=== PATIENT | male | born 1970 | race Caucasian/White ===

== ENCOUNTER 2017-01-19 08:16 | Emergency (ER) | payer MEDICAID, OTHER ==
[~2017-01-19] VITALS: Ht 170.2 cm; Wt 79.0 kg
[~2017-01-19 08:16] MED LIST: BUTA1CAP PO; METF500 PO
[2017-01-19 08:20] VITALS: BP 142/87; PULSE 81; RESP 18; TEMP 98.6; O2SAT 99
[2017-01-19] MEDS ORDERED: SODIUM CHLOR 0.9% 1000 ML INJ 1,000 ML IV SCH (09:10)
--- NOTE | 2017-01-19 09:13 | PD ---
HPI Chief Complaint: GI Complaint Time Seen by Provider: 09:04 Travel History International Travel<30 days: No Contact w/Intl Traveler<30days: No History of Present Illness HPI This is a 46-year-old male who presents to the emergency department with 2 days of feeling weak and tired, constant, moderate severity associated with nausea vomiting and diarrhea. He says he's had multiple episodes of loose stool over the past 2 days. He has diffuse cramping in his abdomen. He denies any fevers or chills. 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 He says he's been feeling pretty depressed. He is from [place] and he has a lot of bills here and he just feels like things are harder here. He denies any thoughts of hurting himself. PFSH Past Medical History Hx Anticoagulant Therapy: No Cardiovascular Problems: No High Cholesterol: Yes Chemotherapy: No Cerebrovascular Accident: No Diabetes: Yes Patient Takes Glucophage: No Diminished Hearing: No Hypertension: Yes Respiratory: No Influenza Vaccination: No Past Surgical History Hysterectomy: No Other Surgery: Yes (right arm/leg) Family History Family Hypercholesterolemia: Yes Social History Alcohol Use: No Tobacco Use: No Substance Use: No Allergies-Medications (Allergen,Severity, Reaction): Coded Allergies: No Known Allergies (Unverified , 01/19/17) Reported Meds & Prescriptions Reported Meds & Active Scripts Active No Active Prescriptions or Reported Medications Review of Systems Except as stated in HPI: all other systems reviewed are Neg Physical Exam Narrative GENERAL:Well appearing, no acute distress SKIN: Focused skin assessment warm and dry. HEAD: Atraumatic. Normocephalic. EYES: Pupils equal and round. No injection or drainage. ENT: Moist mucous membranes NECK: Trachea midline. CARDIOVASCULAR: Regular rate and rhythm. No murmur appreciated. RESPIRATORY: Clear to auscultation. Breath sounds equal bilaterally. GASTROINTESTINAL: Abdomen soft, mildly tender to palpation diffusely with no rebound or guarding. MUSCULOSKELETAL: Tender to palpation over the right sacroiliac joint, full painless range of motion of both hips. NEUROLOGICAL: Awake and alert. No obvious cranial nerve deficits. Moving all extremities. PSYCHIATRIC: Appropriate mood and affect; insight and judgment normal. Data Data Last Documented VS Vital Signs Date Time Temp Pulse Resp B/P Pulse Ox O2 Delivery O2 Flow Rate FiO2 01/19/17 09:28 64 18 99 Room Air 01/19/17 08:20 98.6 142/87 Orders Complete Blood Count With Diff (01/19/17 09:10) Comprehensive Metabolic Panel (01/19/17 09:10) Lipase (01/19/17 09:10) Urinalysis - C+S If Indicated (01/19/17 09:10) Iv Access Insert/Monitor (01/19/17 09:10) Ecg Monitoring (01/19/17 09:10) Oximetry (01/19/17 09:10) Sodium Chlor 0.9% 1000 Ml Inj (Ns 1000 M (01/19/17 09:10) Sodium Chloride 0.9% Flush (Ns Flush) (01/19/17 09:15) Ketorolac Inj (Toradol Inj) (01/19/17 09:15) Labs Laboratory Tests Test 01/19/17 01/19/17 08:40 09:20 White Blood Count 7.9 TH/MM3 Red Blood Count 5.11 MIL/MM3 Hemoglobin 14.7 GM/DL Hematocrit 43.4 % Mean Corpuscular Volume 85.0 FL Mean Corpuscular Hemoglobin 28.8 PG Mean Corpuscular Hemoglobin 33.9 % Concent Red Cell Distribution Width 12.0 % Platelet Count 269 TH/MM3 Mean Platelet Volume 8.3 FL Neutrophils (%) (Auto) 69.2 % Lymphocytes (%) (Auto) 17.8 % Monocytes (%) (Auto) 6.5 % Eosinophils (%) (Auto) 5.8 % Basophils (%) (Auto) 0.7 % Neutrophils # (Auto) 5.3 TH/MM3 Lymphocytes # (Auto) 1.4 TH/MM3 Monocytes # (Auto) 0.5 TH/MM3 Eosinophils # (Auto) 0.5 TH/MM3 Basophils # (Auto) 0.1 TH/MM3 CBC Comment DIFF FINAL Differential Comment Sodium Level 135 MEQ/L Potassium Level 4.2 MEQ/L Chloride Level 102 MEQ/L Carbon Dioxide Level 25.4 MEQ/L Anion Gap 8 MEQ/L Blood Urea Nitrogen 17 MG/DL Creatinine 0.93 MG/DL Estimat Glomerular Filtration 88 ML/MIN Rate Random Glucose 364 MG/DL Calcium Level 9.0 MG/DL Total Bilirubin 0.4 MG/DL Aspartate Amino Transf 17 U/L (AST/SGOT) Alanine Aminotransferase 39 U/L (ALT/SGPT) Alkaline Phosphatase 127 U/L Total Protein 6.9 GM/DL Albumin 3.3 GM/DL Lipase 87 U/L Urine Collection Type CLEAN CATCH Urine Color YELLOW Urine Turbidity CLEAR Urine pH 5.5 Urine Specific [place] 1.033 Urine Protein NEG mg/dL Urine Glucose (UA) 1000 OR GREATER mg/dL Urine Ketones NEG mg/dL Urine Occult Blood NEG Urine Nitrite NEG Urine Bilirubin NEG Urine Leukocyte Esterase NEG Urine Squamous Epithelial 0-5 /hpf Cells Microscopic Urinalysis Comment CULT NOT INDICATED MDM Medical Decision Making Medical Screen Exam Complete: Yes Emergency Medical Condition: Yes Interpretation(s) Afebrile, no tachycardia, hypertensive No leukocytosis Hyperglycemic Urinalysis: Glucosuria Differential Diagnosis Diabetes, hyperglycemia, gastroenteritis, irritable bowel syndrome, colitis, muscular skeletal back pain Narrative Course This is a 46-year-old male who presents to the emergency department with fatigue and some abdominal discomfort over the past 2 days. He has a history of diabetes for which she takes no medication. He was placed on a monitor and an IV was established. Labs are obtained which were reassuring with the exception of a glucose of 360. He was given a liter of IV fluid and Toradol. He says his back pain and his abdominal discomfort feels much better. I don't suspect a surgical etiology of his symptoms. I do think that is diabetes is out of control and is likely contributing to his symptoms. Patient was given a referral to the [facility]. He was given some dietary counseling and will be started on metformin. Diagnosis Primary Impression: Hyperglycemia Referrals: [facility] Patient Instructions: General Instructions Additional Instructions: If you develop severe or worsening abdominal pain, fever>100.4, persistent vomiting or inability to eat or drink return to the emergency department immediately. Med/Other Pt SpecificInfo: Prescription(s) given Scripts Naproxen 500 Mg [id number] Mg PO BID PRN (PAIN SCALE 4 TO 10) #60 TAB Ref 0 Prov:Marcie Link MD 01/19/17 Metformin 500 Mg [id number] Mg PO BIDPC #60 TAB Ref 0 With meals Prov:Marcie Link MD 01/19/17 Disposition: 01 DISCHARGE HOME Condition: Stable Marcie Link MD Jan 19, 2017 09:13
[2017-01-19] MEDS ORDERED: SODIUM CHLORIDE 0.9% FLUSH 10 ML FLUSH IV FLUSH PRN (09:15)
[2017-01-19] MEDS ORDERED: KETOROLAC TROMETHAMINE 30 MG/ML (IVP) VIAL IVP ONE (09:15)
[2017-01-19 09:27] LABS: AUTOMATED NEUTROPHIL # 5.3 TH/MM3 (1.8-7.7); BASOPHIL # 0.1 TH/MM3 (0-0.2); BASOPHIL % 0.7 % (0.0-2.0); EOSINOPHIL # 0.5 TH/MM3 (0-0.4); EOSINOPHIL % 5.8 % (0.0-4.0); HEMATOCRIT 43.4 % (39.0-51.0); HEMO FLAGS DIFF FINAL; LYMPH % 17.8 % (9.0-44.0); LYMPHOCYTE # 1.4 TH/MM3 (1.0-4.8); MEAN CORPUSCULAR HEMOGLOBIN 28.8 PG (27.0-34.0); MEAN CORPUSCULAR HGB CONC 33.9 % (32.0-36.0); MONO % 6.5 % (0.0-8.0); NEUT % 69.2 % (16.0-70.0); PLATELET COUNT 269 TH/MM3 (150-450); RED BLOOD COUNT 5.11 MIL/MM3 (4.50-5.90); WHITE BLOOD COUNT 7.9 TH/MM3 (4.0-11.0)
[2017-01-19 09:28] VITALS: PULSE 64; RESP 18; O2SAT 99
[2017-01-19 09:34] LABS: BLOOD, URINE NEG (NEG); KETONE, URINE NEG (NEG); NITRITE,URINE NEG (NEG); PH, URINE 5.5 (5.0-8.5)
[2017-01-19 09:35] LABS: GLUCOSE,URINE 1000 OR GREATER mg/dL (NEG); METHOD OF COLLECTION CLEAN CATCH
[2017-01-19 09:36] LABS: URINE COLOR YELLOW (YELLW/STRAW)
[2017-01-19 09:42] LABS: COMMENT (UR) CULT NOT INDICATED; CULTURE IF INDICATED CULT NOT INDICATED; SQUAMOUS EPITHELIAL CELL URINE 0-5 /hpf (0-5)
[2017-01-19 09:48] LABS: BICARBONATE 25.4 MEQ/L (21.0-32.0); BLOOD UREA NITROGEN 17 MG/DL (7-18)
[2017-01-19 09:50] LABS: ALT (GPT) 39 U/L (12-78); GLOMERULAR FILTRATION RATE 88 ML/MIN (>89)
[2017-01-19 09:52] LABS: TOTAL BILIRUBIN ADULT 0.4 MG/DL (0.2-1.0)
[2017-01-19 09:53] LABS: ALKALINE PHOSPHATASE 127 U/L (45-117); AST (GOT) 17 U/L (15-37)
[2017-01-19 09:54] LABS: ANION GAP 8 MEQ/L (5-15); CHLORIDE 102 MEQ/L (98-107); POTASSIUM 4.2 MEQ/L (3.5-5.1); SODIUM (NA) 135 MEQ/L (136-145)
[2017-01-19] MEDS ORDERED: METF500T PO (10:10)
[2017-01-19] MEDS ORDERED: NAPR500T PO (10:10)
[2017-01-19 10:22] VITALS: RESP 16
== END 2017-01-19 10:32 | disposition home or self-care (01) ==
LOC: PHED 08:16
DX: E11.65 Type 2 diabetes mellitus with hyperglycemia (principal); M54.5 Low back pain
CPT/HCPCS: 80053; 81001; 83690; 85025; 96361; 96374; 99284; J1885; J7030

== ENCOUNTER 2017-01-25 11:41 | Emergency (ER) | payer MEDICAID, OTHER ==
[~2017-01-25] VITALS: Ht 170.2 cm; Wt 80.9 kg
[~2017-01-25 11:41] MED LIST changes: -BUTA1CAP PO; -METF500 PO; +METF500T PO; +NAPR500T PO
[2017-01-25 11:45] VITALS: BP 136/88; PULSE 100; RESP 16; TEMP 98.6; O2SAT 98
[2017-01-25] MEDS ORDERED: SODIUM CHLOR 0.9% 1000 ML INJ 1,000 ML IV ONE (12:06)
--- NOTE | 2017-01-25 12:11 | PD ---
HPI Chief Complaint: Diabetic Time Seen by Provider: 12:06 Travel History International Travel<30 days: No Contact w/Intl Traveler<30days: No Traveled to known affect area: No History of Present Illness HPI 47-year-old male with history of diabetes currently not on any medications, presents to the ER today for an episode of palpitations, lightheadedness, nausea and vomiting that happened suddenly today while he was at work. 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 He states it has been hot. He states that the symptoms are settling down and he denies any chest pains or shortness of breath currently. He states that the palpitations are getting better. He admits he has been more stressed out than usual. He states he did not have insurance and has not been able to get medical care. Modifying Factors: None Associated Signs & Symptoms: Palpitations, lightheadedness, nausea and vomiting Risk Factors: Diabetic PFSH Past Medical History Hx Anticoagulant Therapy: No Cardiovascular Problems: No High Cholesterol: Yes Chemotherapy: No Cerebrovascular Accident: No Diabetes: Yes (Not taking medications ) Patient Takes Glucophage: No Diminished Hearing: No Hypertension: Yes Respiratory: No Past Surgical History Hysterectomy: No Other Surgery: Yes (right arm/leg) Family History Family Hypercholesterolemia: Yes Social History Alcohol Use: No Tobacco Use: No Substance Use: No Allergies-Medications (Allergen,Severity, Reaction): Coded Allergies: No Known Allergies (Unverified , 01/25/17) Reported Meds & Prescriptions Reported Meds & Active Scripts Active Naproxen 500 Mg Tab 500 Mg PO BID PRN Metformin (Metformin HCl) 500 Mg Tab 500 Mg PO BIDPC With meals Review of Systems Except as stated in HPI: all other systems reviewed are Neg Physical Exam Narrative GENERAL: Middle age male patient who is well-developed, in moderate distress, appears anxious. Awake and oriented 3. SKIN: Focused skin assessment warm/dry. HEAD: Atraumatic. Normocephalic. EYES: Pupils equal and round. No scleral icterus. No injection or drainage. ENT: No nasal bleeding or discharge. Mucous membranes pink and moist. NECK: Trachea midline. No JVD. CARDIOVASCULAR: Regular rate and rhythm. No murmur appreciated. RESPIRATORY: No accessory muscle use. Clear to auscultation. Breath sounds equal bilaterally. GASTROINTESTINAL: Abdomen soft, non-tender, nondistended. Hepatic and splenic margins not palpable. MUSCULOSKELETAL: No obvious deformities. No clubbing. No cyanosis. No edema. NEUROLOGICAL: Awake and alert. No obvious cranial nerve deficits. Motor grossly within normal limits. Normal speech. PSYCHIATRIC: Appropriate mood and affect; insight and judgment normal. Data Data Last Documented VS Vital Signs Date Time Temp Pulse Resp B/P Pulse Ox O2 Delivery O2 Flow Rate FiO2 01/25/17 13:50 72 18 130/74 99 01/25/17 11:45 98.6 Orders Electrocardiogram (01/25/17 12:06) Complete Blood Count With Diff (01/25/17 12:06) Comprehensive Metabolic Panel (01/25/17 12:06) Magnesium (Mg) (01/25/17 12:06) Beta Hydroxybutyrate (Acetone) (01/25/17 12:06) Urinalysis - C+S If Indicated (01/25/17 12:06) Chest, Single Ap (01/25/17 12:06) Ecg Monitoring (01/25/17 12:06) Iv Access Insert/Monitor (01/25/17 12:06) Oximetry (01/25/17 12:06) NPO (01/25/17 12:06) Sodium Chlor 0.9% 1000 Ml Inj (Ns 1000 M (01/25/17 12:06) Sodium Chloride 0.9% Flush (Ns Flush) (01/25/17 12:15) Insulin Human Regular Inj (Novolin R Inj (01/25/17 13:15) Psych Screen (01/25/17 13:17) Drug Screen, Random Urine (01/25/17 13:17) Alcohol (Ethanol) (01/25/17 13:17) Labs Laboratory Tests Test 01/25/17 12:15 White Blood Count 7.5 TH/MM3 Red Blood Count 4.88 MIL/MM3 Hemoglobin 14.3 GM/DL Hematocrit 41.9 % Mean Corpuscular Volume 85.8 FL Mean Corpuscular Hemoglobin 29.3 PG Mean Corpuscular Hemoglobin 34.2 % Concent Red Cell Distribution Width 11.7 % Platelet Count 275 TH/MM3 Mean Platelet Volume 7.8 FL Neutrophils (%) (Auto) 52.2 % Lymphocytes (%) (Auto) 33.5 % Monocytes (%) (Auto) 7.1 % Eosinophils (%) (Auto) 6.5 % Basophils (%) (Auto) 0.7 % Neutrophils # (Auto) 3.9 TH/MM3 Lymphocytes # (Auto) 2.5 TH/MM3 Monocytes # (Auto) 0.5 TH/MM3 Eosinophils # (Auto) 0.5 TH/MM3 Basophils # (Auto) 0.1 TH/MM3 CBC Comment DIFF FINAL Differential Comment Sodium Level 135 MEQ/L Potassium Level 4.1 MEQ/L Chloride Level 99 MEQ/L Carbon Dioxide Level 27.1 MEQ/L Anion Gap 9 MEQ/L Blood Urea Nitrogen 18 MG/DL Creatinine 1.10 MG/DL Estimat Glomerular Filtration 72 ML/MIN Rate Random Glucose 484 MG/DL Calcium Level 8.9 MG/DL Magnesium Level 1.9 MG/DL Total Bilirubin 0.2 MG/DL Aspartate Amino Transf 18 U/L (AST/SGOT) Alanine Aminotransferase 35 U/L (ALT/SGPT) Alkaline Phosphatase 169 U/L Total Protein 6.9 GM/DL Albumin 3.3 GM/DL Ethyl Alcohol Level LESS THAN 3 MG/DL B-Hydroxybutyrate 0.11 MMOL/L [facility] Medical Decision Making Medical Screen Exam Complete: Yes Emergency Medical Condition: Yes Medical Record Reviewed: Yes Interpretation(s) EKG shows NSR, no ST elevation or depression, and no arrhythmias. No significant T-wave inversions. Laboratory Tests Test 01/25/17 12:15 Eosinophils (%) (Auto) 6.5 % (0.0-4.0) Eosinophils # (Auto) 0.5 TH/MM3 (0-0.4) Sodium Level 135 MEQ/L (136-145) Estimat Glomerular Filtration 72 ML/MIN (>89) Rate Random Glucose 484 MG/DL (74-106) Alkaline Phosphatase 169 U/L (45-117) Albumin 3.3 GM/DL (3.4-5.0) Differential Diagnosis Palpitations, nausea and vomitingdehydration versus metabolic issues versus dysrhythmias versus DKA versus hyperglycemia versus anxiety attack versus heat exhaustion Narrative Course EKG did not show any signs of significant dysrhythmias. On further questioning , patient admits that he is fairly depressed, has overwhelming bills to pay with a growing family, and has been crying a lot in his room, trying to stay away from everybody else, has contemplated suicidal thoughts. He appears fairly anxious and is crying on answering questions. At this point, it appears that much of the symptoms may be secondary to anxiety issues. He does have a fairly elevated blood sugar but does not have any signs of DKA or other significant metabolic issues. He was given IV fluids and insulin in the ER. At this point, my plan would be to medically clear him for psychiatric evaluation. He is Reyes acted due to his suicidal ideation. Diagnosis Primary Impression: Hyperglycemia Additional Impression: Depression with suicidal ideation Disposition: 65 DISC TO [facility] Condition: Stable Tamy Thomason MD Jan 25, 2017 12:11
[2017-01-25] MEDS ORDERED: SODIUM CHLORIDE 0.9% FLUSH 10 ML FLUSH IVF PRN (12:15)
[2017-01-25 12:17] VITALS: O2SAT 98
--- NOTE | 2017-01-25 12:26 | RADRPT ---
EXAM DATE/TIME: 01/25/2017 12:19 [facility] COMPARISON: CHEST SINGLE AP, January 15, 2015, 8:38. INDICATIONS : Chest pain since this morning. MEDICAL HISTORY : None. SURGICAL HISTORY : None. ENCOUNTER: Initial ACUITY: 1 day PAIN SCORE: 7/10 LOCATION: Bilateral chest FINDINGS: A single view of the chest demonstrates the lungs to be symmetrically aerated without evidence of mas s, infiltrate or effusion. The cardiomediastinal contours are unremarkable. Osseous structures are intact. CONCLUSION: 1. No acute cardiopulmonary findings. Stable compared to previous. Ramiro Ayala MD on January 25, 2017 at 12:24 Board Certified Radiologist. This report was verified electronically.
[2017-01-25 12:28] LABS: AUTOMATED NEUTROPHIL # 3.9 TH/MM3 (1.8-7.7); BASOPHIL # 0.1 TH/MM3 (0-0.2); BASOPHIL % 0.7 % (0.0-2.0); EOSINOPHIL # 0.5 TH/MM3 (0-0.4); EOSINOPHIL % 6.5 % (0.0-4.0); HEMATOCRIT 41.9 % (39.0-51.0); HEMO FLAGS DIFF FINAL; LYMPH % 33.5 % (9.0-44.0); LYMPHOCYTE # 2.5 TH/MM3 (1.0-4.8); MEAN CELL VOLUME 85.8 FL (80.0-100.0); MEAN CORPUSCULAR HEMOGLOBIN 29.3 PG (27.0-34.0); MEAN CORPUSCULAR HGB CONC 34.2 % (32.0-36.0); MONO % 7.1 % (0.0-8.0); NEUT % 52.2 % (16.0-70.0); PLATELET COUNT 275 TH/MM3 (150-450); RED BLOOD COUNT 4.88 MIL/MM3 (4.50-5.90); RED CELL DISTRIBUTION WIDTH 11.7 % (11.6-17.2); WHITE BLOOD COUNT 7.5 TH/MM3 (4.0-11.0)
[2017-01-25 12:29] LABS: CHLORIDE 99 MEQ/L (98-107); POTASSIUM 4.1 MEQ/L (3.5-5.1); SODIUM (NA) 135 MEQ/L (136-145)
[2017-01-25 12:33] LABS: ANION GAP 9 MEQ/L (5-15); BICARBONATE 27.1 MEQ/L (21.0-32.0)
[2017-01-25 12:53] VITALS: BP 141/78; PULSE 80; RESP 18; O2SAT 98
[2017-01-25 12:59] LABS: ALKALINE PHOSPHATASE 169 U/L (45-117); ALT (GPT) 35 U/L (12-78); AST (GOT) 18 U/L (15-37); BETA-HYDROXYBUTYRATE 0.11 MMOL/L (0.00-0.39); BLOOD UREA NITROGEN 18 MG/DL (7-18); GLOMERULAR FILTRATION RATE 72 ML/MIN (>89); MAGNESIUM 1.9 MG/DL (1.5-2.5); TOTAL BILIRUBIN ADULT 0.2 MG/DL (0.2-1.0)
[2017-01-25] MEDS ORDERED: INSULIN HUMAN REGULAR 1,000 UNITS/10 ML VIAL IV PUSH ONE (13:15)
[2017-01-25 13:50] VITALS: BP 130/74; PULSE 72; RESP 18; O2SAT 99
[2017-01-25 14:04] LABS: BLOOD, URINE NEG (NEG); KETONE, URINE NEG (NEG); NITRITE,URINE NEG (NEG)
[2017-01-25 14:05] LABS: GLUCOSE,URINE 1000 OR GREATER mg/dL (NEG)
[2017-01-25 14:09] LABS: URINE COLOR STRAW (YELLW/STRAW); WBC, URINE 0-2 /hpf (0-5)
[2017-01-25 14:10] LABS: COMMENT (UR) CULT NOT INDICATED; CULTURE IF INDICATED CULT NOT INDICATED; SQUAMOUS EPITHELIAL CELL URINE 0-5 /hpf (0-5)
[2017-01-25 14:39] VITALS: BP 113/72; PULSE 71; RESP 20; O2SAT 95
[2017-01-25 16:27] VITALS: BP 113/72
--- NOTE | 2017-01-25 19:22 | PD ---
History of Present Illness Chief Complaint: Diabetic Time Seen by Provider: 15:45 Travel History International Travel<30 Days: No Contact w/Intl Traveler<30days: No Known affected area: No Legal Status Legal Status: Reyes Act Reyes Act Signed By: DR. AMINTA Reyes Act Comment: DR. DWYER GERSON History of Present Illness: History of Present Illness HPI 47-year-old male with history of diabetes and no psychiatric history who presents to the ER today for an episode of palpitations, lightheadedness, nausea and vomiting that happened suddenly today while he was at work. 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 He also reported feeling stressed and was placed under a BA by ed provider who felt the patient was suicidal. The patient speaks mostly Amharic and he states that he was misunderstood. He admits to feeling overwhelmed and that he cries but that he is not suicidal. He states that he has a 2 year old son and that his is and that he would not hurt himself . he also talks of his belief i God as a deterrent to ever hurting himself. The patient denies any psychiatric history. He denies any substance use and current toxicology is negative. He is seen in [facility]. He is alert and oriented. Speech is clear and logical. No psychosis and no davidson. No suicidal or homicidal ideation, intent or plan. Does admit to feeling overwhelmed with financial obligations and stress due to his uncontrolled diabetes. PFSH Past Medical History Hx Anticoagulant Therapy: No Cardiovascular Problems: No High Cholesterol: Yes Chemotherapy: No Cerebrovascular Accident: No Diabetes: Yes (Not taking medications ) Patient Takes Glucophage: No Diminished Hearing: No Hypertension: Yes Respiratory: No Past Surgical History Hysterectomy: No Other Surgery: Yes (right arm/leg) Psychiatric History Psychiatric History Hx Psychiatric Treatment: NO PSYCHIATRIC HISTORY History of Inpatient Treatment: No Guns or firearms in home: No Social History x 5 years. Lives with and 2 year old son. works in construction. Moved from [place] 4 years ago. Hx Alcohol Use: No Hx Tobacco Use: No Hx Substance Use: No Hx of Substance Use Treatment: No Family Psychiatric History Negative Allergies-Medications (Allergen,Severity, Reaction): Coded Allergies: No Known Allergies (Unverified , 01/25/17) Reported Meds & Prescriptions Reported Meds & Active Scripts Active Naproxen 500 Mg Tab 500 Mg PO BID PRN Metformin (Metformin HCl) 500 Mg Tab 500 Mg PO BIDPC With meals Review of Systems Endocrine: COMPLAINS OF: Polydipsia, Polyuria Gastrointestinal: COMPLAINS OF: Nausea Musculoskeletal: COMPLAINS OF: Joint pain Exam Alert: Yes [place]: Person (ox4) Affect: Appropriate Speech: Clear, Logical (communicates in moroccan) Eye Contact: Normal Memory Intact: Immediate, Comment (No impairmetn) Hallucinations: Other (negative) Delusions: No Suicidal: Ideation (Negative) Homicidal: Ideation (Negative) Insight/Judgement Fair. Not impaired. MDM Medical Decision Making Medical Record Reviewed: Yes Assessment/Plan 47-year-old male with history of diabetes and no psychiatric history who presents to the ER today for an episode of palpitations, lightheadedness, nausea and vomiting that happened suddenly today while he was at work. 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 He also reported feeling stressed and was placed under a BA by ed provider who felt the patient was suicidal. The patient was interviewed in Amharic. He does not present any acute psychiatric symptoms. no suicidal or homicidal ideation. Patein is future oriented with adequate protective factors as well as no hx of previous suicide attempts. Offered support.Psychoeducation. Lift BA. Orders Electrocardiogram (01/25/17 12:06) Complete Blood Count With Diff (01/25/17 12:06) Comprehensive Metabolic Panel (01/25/17 12:06) Magnesium (Mg) (01/25/17 12:06) Beta Hydroxybutyrate (Acetone) (01/25/17 12:06) Urinalysis - C+S If Indicated (01/25/17 12:06) Chest, Single Ap (01/25/17 12:06) Ecg Monitoring (01/25/17 12:06) Iv Access Insert/Monitor (01/25/17 12:06) Oximetry (01/25/17 12:06) NPO (01/25/17 12:06) Sodium Chlor 0.9% 1000 Ml Inj (Ns 1000 M (01/25/17 12:06) Sodium Chloride 0.9% Flush (Ns Flush) (01/25/17 12:15) Insulin Human Regular Inj (Novolin R Inj (01/25/17 13:15) Psych Screen (01/25/17 13:17) Drug Screen, Random Urine (01/25/17 13:17) Alcohol (Ethanol) (01/25/17 13:17) Results Vital Signs Date Time Temp Pulse Resp B/P Pulse Ox O2 Delivery O2 Flow Rate FiO2 01/25/17 16:27 71 20 113/72 95 01/25/17 14:39 71 20 113/72 95 01/25/17 13:50 72 18 130/74 99 01/25/17 12:53 80 18 141/78 98 01/25/17 12:17 98 01/25/17 11:45 98.6 100 16 136/88 98 Laboratory Tests Test 01/25/17 01/25/17 12:15 13:55 White Blood Count 7.5 Red Blood Count 4.88 Hemoglobin 14.3 Hematocrit 41.9 Mean Corpuscular Volume 85.8 Mean Corpuscular Hemoglobin 29.3 Mean Corpuscular Hemoglobin 34.2 Concent Red Cell Distribution Width 11.7 Platelet Count 275 Mean Platelet Volume 7.8 Neutrophils (%) (Auto) 52.2 Lymphocytes (%) (Auto) 33.5 Monocytes (%) (Auto) 7.1 Eosinophils (%) (Auto) 6.5 Basophils (%) (Auto) 0.7 Neutrophils # (Auto) 3.9 Lymphocytes # (Auto) 2.5 Monocytes # (Auto) 0.5 Eosinophils # (Auto) 0.5 Basophils # (Auto) 0.1 CBC Comment DIFF FINAL Differential Comment Sodium Level 135 Potassium Level 4.1 Chloride Level 99 Carbon Dioxide Level 27.1 Anion Gap 9 Blood Urea Nitrogen 18 Creatinine 1.10 Estimat Glomerular Filtration 72 Rate Random Glucose 484 Calcium Level 8.9 Magnesium Level 1.9 Total Bilirubin 0.2 Aspartate Amino Transf 18 (AST/SGOT) Alanine Aminotransferase 35 (ALT/SGPT) Alkaline Phosphatase 169 Total Protein 6.9 Albumin 3.3 Ethyl Alcohol Level LESS THAN 3 B-Hydroxybutyrate 0.11 Urine Color STRAW Urine Turbidity CLEAR Urine pH 6.0 Urine Specific [place] 1.033 Urine Protein NEG Urine Glucose (UA) 1000 OR GREATER Urine Ketones NEG Urine Occult Blood NEG Urine Nitrite NEG Urine Bilirubin NEG Urine Leukocyte Esterase NEG Urine WBC 0-2 Urine Squamous Epithelial 0-5 Cells Microscopic Urinalysis Comment CULT NOT INDICATED Urine Opiates Screen NEG Urine Barbiturates Screen NEG Urine Amphetamines Screen NEG Urine Benzodiazepines Screen NEG Urine Cocaine Screen NEG Urine Cannabinoids Screen NEG Diagnosis Primary Impression: Adjustment disorder Additional Impression: Hyperglycemia Psychiatrically Cleared: Yes Departure Forms: Tests/Procedures Patient Instructions: General Instructions, Stress (ED) Med/ Other Pt Specific Info: No Meds Exist/No RX given Disposition: 01 DISCHARGE HOME Condition: Stable Problem Qualifiers Primary Impression: Adjustment disorder Qualified Code: F43.21 - Adjustment disorder with depressed mood Bailey Coates [facility] Jan 25, 2017 19:22
--- NOTE | 2017-01-26 15:07 | EKG ---
Date Performed: 01/25/2017 Time Performed: 12:13:18 PTAGE: 47 years EKG: Sinus rhythm MARKED LEFT AXIS DEVIATION ABNORMAL ECG PREVIOUS TRACING : 01/15/2015 08.56 Since previous tracing, no significant change noted DOCTOR: Kelvin Ayala Interpretating Date/Time 01/26/2017 15:05:59
== END 2017-01-25 16:32 | disposition home or self-care (01) ==
LOC: PHED 11:41 → NEPJ 16:32
DX: F43.20 Adjustment disorder, unspecified (principal); E11.65 Type 2 diabetes mellitus with hyperglycemia; R00.2 Palpitations; R42 Dizziness and giddiness; R11.2 Nausea with vomiting, unspecified; R45.851 Suicidal ideations; R94.31 Abnormal electrocardiogram [ECG] [EKG]; I10 Essential (primary) hypertension; E78.00 Pure hypercholesterolemia, unspecified
CPT/HCPCS: 71010; 80053; 80307; 81001; 82010; 83735; 85025; 93005; 96361; 96374; 99284; J1815; J7030

== ENCOUNTER 2017-04-11 21:52 | Emergency (ER) | payer MEDICAID ==
[~2017-04-11 21:52] MED LIST changes: -NAPR500T PO; +NAPR500T2 PO
[2017-04-11 21:57] VITALS: BP 144/80; PULSE 88; RESP 20; TEMP 98.4; O2SAT 98
[2017-04-11] MEDS ORDERED: SODIUM CHLOR 0.9% 1000 ML INJ 1,000 ML IV SCH (22:44)
[2017-04-11] MEDS ORDERED: PENICILLIN V POTASSIUM 500 MG TAB PO ONE (22:45)
[2017-04-11] MEDS ORDERED: SODIUM CHLORIDE 0.9% FLUSH 10 ML FLUSH IV FLUSH PRN (22:45)
[2017-04-11] MEDS ORDERED: IBUPROFEN 600 MG TAB PO ONE (22:45)
[2017-04-11] MEDS ORDERED: metFORMIN HCL 500 MG TAB PO ONE (22:45)
[2017-04-11] MEDS ORDERED: INSULIN HUMAN REGULAR 1,000 UNITS/10 ML VIAL SQ ONE (22:45)
[2017-04-11] MEDS ORDERED: SODIUM CHLOR 0.9% 1000 ML INJ 1,000 ML IV ONE (22:45)
--- NOTE | 2017-04-11 22:49 | PD ---
HPI Chief Complaint: Oral / Dental Pain or Problem Time Seen by Provider: 22:31 Travel History International Travel<30 days: No Contact w/Intl Traveler<30days: No Traveled to known affect area: No History of Present Illness HPI Patient is a 47 year old Maltese speaking male who presents to emergency room with complaints of right upper tooth pain. Patient reports that his tooth was hurting yesterday so he decided to pull his tooth. Patient reports that he does not have a dentist and since his tooth was hurting him, he pulled it out himself. Patient reports pain to where his tooth was pulled. Denies fever/ chills. Patient requesting dental assistance. Patient also requesting that his blood sugar be checked. Reports that he is a diabetic but is not on any medications at this time. Reports that he does not have medical insurance and would like his glucose checked. Denies polydipsia or polyuria A sketcher line was utilized to talk to patient PFSH Past Medical History Hx Anticoagulant Therapy: No Cardiovascular Problems: No High Cholesterol: Yes Chemotherapy: No Cerebrovascular Accident: No Diabetes: Yes (Not taking medications ) Patient Takes Glucophage: No Diminished Hearing: No Hypertension: Yes Respiratory: No Immunizations Current: No Tetanus Vaccination: > 5 Years Influenza Vaccination: No Past Surgical History Hysterectomy: No Other Surgery: Yes (right arm/leg) Family History Family Hypercholesterolemia: Yes Social History Alcohol Use: No Tobacco Use: No Substance Use: No Allergies-Medications (Allergen,Severity, Reaction): Coded Allergies: No Known Allergies (Unverified Adverse Reaction, Unknown, 04/11/17) Reported Meds & Prescriptions Reported Meds & Active Scripts Active Ibuprofen 600 Mg Tab 600 Mg PO Q6H PRN Penicillin V Potassium 500 Mg Tab 500 Mg PO Q6H 10 Days Metformin (Metformin HCl) 500 Mg Tab 500 Mg PO DAILY With a meal Review of Systems General / Constitutional: No: Fever Eyes: No: Visual changes HENT: Positive: Dental Difficulties, No: Headaches Cardiovascular: No: Chest Pain or Discomfort Respiratory: No: Shortness of Breath Gastrointestinal: No: Abdominal Pain Genitourinary: No: Dysuria Musculoskeletal: No: Pain Skin: No Rash Neurologic: No: Weakness Psychiatric: No: Depression Endocrine: No: Polydipsia Hematologic/Lymphatic: No: Easy Bruising Physical Exam Narrative GENERAL: NAD, nontoxic SKIN: Focused skin assessment warm/dry. HEAD: Atraumatic. Normocephalic. EYES: Pupils equal and round. No scleral icterus. No injection or drainage. ENT: No nasal bleeding or discharge. Mucous membranes pink and moist. Patient with poor dentition, patient with no trismus or airway compromise, no facial swelling NECK: Trachea midline. No JVD. CARDIOVASCULAR: Regular rate and rhythm. No murmur appreciated. RESPIRATORY: No accessory muscle use. Clear to auscultation. Breath sounds equal bilaterally. GASTROINTESTINAL: Abdomen soft, non-tender, nondistended. Hepatic and splenic margins not palpable. MUSCULOSKELETAL: No obvious deformities. No clubbing. No cyanosis. No edema. NEUROLOGICAL: Awake and alert. No obvious cranial nerve deficits. Motor grossly within normal limits. Normal speech. PSYCHIATRIC: Appropriate mood and affect; insight and judgment normal. Data Data Last Documented VS Vital Signs Date Time Temp Pulse Resp B/P (MAP) Pulse Ox O2 Delivery O2 Flow Rate FiO2 04/11/17 23:29 20 04/11/17 21:57 98.4 88 144/80 (101) 98 Orders Orders Bedside Glucose DIMITRIS.CSUGAR (04/11/17 22:31) Penicillin V Potassium (Veetids) (04/11/17 22:45) Ibuprofen (Motrin) (04/11/17 22:45) Metformin (Glucophage) (04/11/17 22:45) Comprehensive Metabolic Panel (04/11/17 22:44) Iv Access Insert/Monitor (04/11/17 22:44) Sodium Chlor 0.9% 1000 Ml Inj (Ns 1000 M (04/11/17 22:44) Sodium Chloride 0.9% Flush (Ns Flush) (04/11/17 22:45) Sodium Chlor 0.9% 1000 Ml Inj (Ns 1000 M (04/11/17 22:45) Insulin Human Regular Inj (Novolin R Inj (04/11/17 22:45) Blood Glucose (04/11/17 22:44) Blood Glucose (04/11/17 23:14) Labs Laboratory Tests Test 04/11/17 23:10 Blood Urea Nitrogen 21 MG/DL Creatinine 1.30 MG/DL Random Glucose 559 MG/DL Total Protein 6.7 GM/DL Albumin 3.4 GM/DL Calcium Level 8.7 MG/DL Alkaline Phosphatase 181 U/L Aspartate Amino Transf (AST/SGOT) 16 U/L Alanine Aminotransferase (ALT/SGPT) 36 U/L Total Bilirubin 0.2 MG/DL Sodium Level 132 MEQ/L Potassium Level 4.0 MEQ/L Chloride Level 97 MEQ/L Carbon Dioxide Level 26.4 MEQ/L Anion Gap 9 MEQ/L Estimat Glomerular Filtration Rate 59 ML/MIN MDM Medical Decision Making Medical Screen Exam Complete: Yes Emergency Medical Condition: Yes Medical Record Reviewed: Yes Interpretation(s) Vital Signs Date Time Temp Pulse Resp B/P (MAP) Pulse Ox O2 Delivery O2 Flow Rate FiO2 04/11/17 21:57 98.4 88 20 144/80 (101) 98 Blood sugar 458 Differential Diagnosis Hyperglycemia, dental infection, dental caries Narrative Course During the course of the patients emergency department visit, the patients history, examination, and differential diagnosis were reviewed with the patient. The patient was placed on a cardiac rehabilitation program director with oximetry and frequent blood pressure monitoring. The patient had 20 gauge IV access obtained and blood work sent for analysis. A sketcher was utilized during ER visit. The patient was initially provided pen VK for presumed tooth infection, as for his hyperglycemia and BG of 458, 2 L of IV fluid as well as 6 units of subcutaneous insulin. The patients laboratory studies were reviewed and remarkable for CBC & BMP Diagram 04/11/17 23:10 Total Protein 6.7, Albumin 3.4, Calcium Level 8.7, Alkaline Phosphatase 181 H, Aspartate Amino Transf (AST/SGOT) 16, Alanine Aminotransferase (ALT/SGPT) 36, Total Bilirubin 0.2 Patient's BS 559 with no anion gap, patient has history of diabetes, he has not been on any of his metformin as he could not follow-up with a primary care doctor. Patient was given 2 L of IV fluids, 6 units of insulin subcutaneous, metformin PO. Patient will follow up with [facility] - I did stress importance of following up with pcp Patient understands need to follow-up with a dentist as outpatient, dental referrals were given to patient. Patient also understands importance of follow- up a pcp for further management of his diabetes. Patient was taking metformin for his diabetes in the past, plan to restart him on metformin 500 mg daily. Information for the [place] [facility] was given to patient. Signs and symptoms of when to return to the emergency room was reviewed with patient in detail. Diagnosis Primary Impression: Tooth ache Additional Impression: Hyperglycemia Referrals: [facility] Patient Instructions: General Instructions Additional Instructions: Please provide patient with a copy of their lab work and studies at discharge* * Please follow up with your primary care doctor in 2-3 days Return to the ER if symptoms worsen or progress Return to the ER as needed Please take all antibiotics as prescribed Please follow-up with a dentist as soon as possible Please monitor blood sugars as it was elevated today, please follow-up with the [place] [facility] as soon as possible Med/Other Pt SpecificInfo: Prescription(s) given Scripts Ibuprofen (Ibuprofen) 600 Mg Tab 600 MG PO Q6H Y for Pain/Inflammation, #40 TAB 0 Refills Prov: Susi Fairchild DO 04/11/17 Penicillin V Potassium (Penicillin V Potassium) 500 Mg Tab 500 MG PO Q6H for Infection for 10 Days, #40 TAB 0 Refills Prov: Susi Fairchild DO 04/11/17 Metformin (Metformin) 500 Mg Tab 500 MG PO DAILY for Blood Sugar Management, #30 TAB 0 Refills With a meal Prov: Susi Fairchild DO 04/11/17 Disposition: 01 DISCHARGE HOME Condition: Stable Susi Fairchild DO Apr 11, 2017 22:49
[2017-04-11] MEDS ORDERED: PENI500T PO (22:54)
[2017-04-11] MEDS ORDERED: IBUP-232 PO (22:54)
[2017-04-11] MEDS ORDERED: METF500T PO (22:54)
[2017-04-11 23:28] LABS: CHLORIDE 97 MEQ/L (98-107); SODIUM (NA) 132 MEQ/L (136-145)
[2017-04-11 23:31] LABS: ANION GAP 9 MEQ/L (5-15); BICARBONATE 26.4 MEQ/L (21.0-32.0); BLOOD UREA NITROGEN 21 MG/DL (7-18)
[2017-04-11 23:34] LABS: ALT (GPT) 36 U/L (12-78); AST (GOT) 16 U/L (15-37); GLOMERULAR FILTRATION RATE 59 ML/MIN (>89)
[2017-04-11 23:36] LABS: TOTAL BILIRUBIN ADULT 0.2 MG/DL (0.2-1.0)
[2017-04-11 23:37] LABS: ALKALINE PHOSPHATASE 181 U/L (45-117)
[2017-04-12 00:10] VITALS: BP 122/74; PULSE 79; RESP 20; O2SAT 98
[2017-04-12 01:18] VITALS: BP 135/79
== END 2017-04-12 01:23 | disposition home or self-care (01) ==
LOC: PHED 21:52
DX: K08.89 Other specified disorders of teeth and supporting structures (principal); E11.65 Type 2 diabetes mellitus with hyperglycemia
CPT/HCPCS: 80053; 96360; 96361; 96372; 99284; J1815; J7030

== ENCOUNTER 2017-05-04 09:23 | Emergency (ER) | payer MEDICAID ==
[~2017-05-04] VITALS: Ht 167.6 cm; Wt 82.0 kg
[~2017-05-04 09:23] MED LIST changes: +IBUP-232 PO; -NAPR500T2 PO; +PENI500T PO
[2017-05-04 09:33] VITALS: BP 145/85; PULSE 80; RESP 16; TEMP 98.3; O2SAT 98
--- NOTE | 2017-05-04 10:21 | PD ---
HPI Chief Complaint: Musculoskeletal Complaint Time Seen by Provider: 10:01 Travel History International Travel<30 days: No Contact w/Intl Traveler<30days: No Traveled to known affect area: No History of Present Illness HPI For 7-year-old male here with right knee pain. Patient reports he slipped in the rain falling onto a flexed knee yesterday. He has pain with weightbearing and range of motion. Pain is slightly relieved with rest. Prescription the pain as aching. Symptom severity mild. He denies head injury or loss of consciousness. He sustained no other injuries. PFSH Past Medical History Hx Anticoagulant Therapy: No Cardiovascular Problems: No High Cholesterol: Yes Chemotherapy: No Cerebrovascular Accident: No Diabetes: Yes (Type 2) Patient Takes Glucophage: No Diminished Hearing: No Hypertension: Yes Respiratory: No Immunizations Current: No Influenza Vaccination: No Past Surgical History Hysterectomy: No Other Surgery: Yes (right arm/leg) Family History Family Hypercholesterolemia: Yes Social History Alcohol Use: No Tobacco Use: No Substance Use: No Allergies-Medications (Allergen,Severity, Reaction): Coded Allergies: No Known Allergies (Unverified Adverse Reaction, Unknown, 05/04/17) Reported Meds & Prescriptions Reported Meds & Active Scripts Active No Active Prescriptions or Reported Medications Review of Systems Except as stated in HPI: all other systems reviewed are Neg Physical Exam Narrative GENERAL: Well-nourished, well-developed patient. SKIN: Focused skin assessment warm/dry. HEAD: Normocephalic. Atraumatic EYES: No scleral icterus. No injection or drainage. NECK: Supple, trachea midline. No JVD or lymphadenopathy. CARDIOVASCULAR: Regular rate and rhythm without murmurs, gallops, or rubs. Chest wall tenderness. RESPIRATORY: Breath sounds equal bilaterally. No accessory muscle use. GASTROINTESTINAL: Abdomen soft, non-tender, nondistended. MUSCULOSKELETAL: No cyanosis, or edema. Attention to the right lower extremity. Patient has pain in the anterior aspect the knee. The joint is stable. No deformity. Pain with flexion. Tenderness to the medial aspect of the knee. 2+ distal pulses. Brisk cap refill. Data Data Last Documented VS Vital Signs Date Time Temp Pulse Resp B/P (MAP) Pulse Ox O2 Delivery O2 Flow Rate FiO2 05/04/17 09:33 98.3 80 16 145/85 (105) 98 Orders Orders Knee, Complete (4vws) (05/04/17 ) Ed Discharge Order (05/04/17 10:59) Splint Or Brace Apply/Monitor (05/04/17 11:01) Ibuprofen (Motrin) (05/04/17 11:15) MDM Medical Decision Making Medical Screen Exam Complete: Yes Emergency Medical Condition: Yes Interpretation(s) X-ray right knee negative for fracture. Differential Diagnosis Knee sprain, fracture, contusion Narrative Course 47-year-old male with right knee pain after slipping and falling onto a flexed knee. On exam the joint is stable. No obvious deformity. Pain to the medial aspect. X-ray pending X-ray is negative for fracture. Patient be treated for knee sprain. Diagnosis Primary Impression: Knee sprain Qualified Codes: S83.91XA - Sprain of unspecified site of right knee, initial encounter Referrals: Primary Care Physician Additional Instructions: Ice and elevate the extremity. Where the Al wrap for support. Take [id number] Motrin 600-800 mg every 6-8 hours as needed for pain. Follow-up with the [facility]. Scripts No Active Prescriptions or Reported Meds Disposition: 01 DISCHARGE HOME Condition: Stable Brooke Marie May 04, 2017 10:21
--- NOTE | 2017-05-04 10:56 | RADRPT ---
EXAM DATE/TIME: 05/04/2017 10:41 [facility] COMPARISON: No previous studies available for comparison. INDICATIONS : Right knee pain post fall. MEDICAL HISTORY : None. SURGICAL HISTORY : None. ENCOUNTER: Initial ACUITY: 2 days PAIN SCORE: 10/10 LOCATION: Right medial knee FINDINGS: Four view examination of the right knee demonstrates no evidence of fracture or dislocation. Bony mi neralization is normal. The articular surfaces are intact. The suprapatellar soft tissues have a no rmal configuration. CONCLUSION: 1. No acute fracture or dislocation. Flash Loera MD on May 04, 2017 at 10:54 Board Certified Radiologist. This report was verified electronically.
[2017-05-04] MEDS ORDERED: IBUPROFEN 800 MG TAB PO ONE (11:15)
== END 2017-05-04 11:19 | disposition home or self-care (01) ==
LOC: PHEFT 09:23
DX: S83.91XA Sprain of unspecified site of right knee, initial encounter (principal); W01.0XXA Fall on same level from slipping, tripping and stumbling without subsequent striking against object, initial encounter
CPT/HCPCS: 73564; 99283

== ENCOUNTER 2017-05-10 20:12 | Emergency (ER) | payer MEDICAID ==
[~2017-05-10] VITALS: Ht 172.7 cm; Wt 77.2 kg
[2017-05-10 20:18] VITALS: BP 169/91; PULSE 90; RESP 18; TEMP 98.1; O2SAT 98
[2017-05-10] MEDS ORDERED: AMOX500C PO (20:30)
[2017-05-10] MEDS ORDERED: insulin (20:30)
[2017-05-10] MEDS ORDERED: HYDR-2376 PO (20:30)
[2017-05-10] MEDS ORDERED: IBUP1TAB7 PO (20:48)
--- NOTE | 2017-05-10 20:48 | PD ---
HPI Chief Complaint: Oral / Dental Pain or Problem Time Seen by Provider: 20:41 Travel History International Travel<30 days: No Contact w/Intl Traveler<30days: No Traveled to known affect area: No History of Present Illness HPI 47 -year-old male here for evaluation of gum swelling after dental surgery 2 days ago. He had multiple dental extractions and noticed some gum swelling. He also reports that his heart races when he takes his hydrocodone. He currently has no symptoms other than mild gum swelling. He denies fever or chills, chest pain, shortness breath and palpitations. He is currently on amoxicillin and hydrocodone prescribed by his dentist. PFSH Past Medical History Hx Anticoagulant Therapy: No Cardiovascular Problems: No High Cholesterol: Yes Chemotherapy: No Cerebrovascular Accident: No Diabetes: Yes Patient Takes Glucophage: No Diminished Hearing: No Hypertension: Yes Respiratory: No Immunizations Current: No Tetanus Vaccination: Unknown Influenza Vaccination: No ?: Not Past Surgical History Hysterectomy: No Other Surgery: Yes (right arm/leg) Family History Family Hypercholesterolemia: Yes Social History Alcohol Use: No Tobacco Use: No Substance Use: No Allergies-Medications (Allergen,Severity, Reaction): Coded Allergies: No Known Allergies (Unverified Adverse Reaction, Unknown, 05/04/17) Reported Meds & Prescriptions Reported Meds & Active Scripts Active Reported [insulin] Hydrocodone-Acetaminophen 7.5-300 Mg Tab 1 Tab PO Q6H PRN Amoxicillin 500 Mg Cap 500 Mg PO QID Review of Systems Except as stated in HPI: all other systems reviewed are Neg Physical Exam Narrative GENERAL: Alert well-appearing male in no acute distress. SKIN: Warm and dry. HEAD: Normocephalic. EYES: No scleral icterus. No injection or drainage. Mouth: Widespread dental decay with numerous complete tooth extractions. Mild gum swelling. No purulent drainage. Uvula is midline. No oropharyngeal swelling. Airway is patent. NECK: Supple, trachea midline. No JVD or lymphadenopathy. CARDIOVASCULAR: Regular rate and rhythm without murmurs, gallops, or rubs. RESPIRATORY: Breath sounds equal bilaterally. No accessory muscle use. GASTROINTESTINAL: Abdomen soft, non-tender, nondistended. Data Data Last Documented VS Vital Signs Date Time Temp Pulse Resp B/P (MAP) Pulse Ox O2 Delivery O2 Flow Rate FiO2 05/10/17 20:18 98.1 90 18 169/91 (117) 98 MDM Medical Decision Making Medical Screen Exam Complete: Yes Emergency Medical Condition: Yes Differential Diagnosis Dental infection, dental pain post-tooth extraction, adverse reaction to medication Narrative Course 47-year-old male here for evaluation of mild gum swelling post multiple tooth extractions at the dentist 2 days ago. He also reports that the hydrocodone makes him "nervous". His physical exam is reassuring he does have widespread dental decay and gum swelling. The swelling is localized to the gums only there is no oropharyngeal swelling his airways patent. He was instructed to continue his amoxicillin and discontinue the use of the hydrocodone. He agrees to this plan Diagnosis Primary Impression: Pain, dental Referrals: Dentist Additional Instructions: Stop taking the hydrocodone. Continue the amoxicillin Take ibuprofen for pain. Follow-up with her dentist. Scripts Ibuprofen (Ibuprofen) 800 Mg Tab 800 MG PO Q6HR Y for PAIN, #40 TAB 0 Refills Prov: Brooke Marie 05/10/17 Disposition: 01 DISCHARGE HOME Condition: Stable Brooke Marie May 10, 2017 20:48
== END 2017-05-10 21:00 | disposition home or self-care (01) ==
LOC: PHEFT 20:12
DX: K08.89 Other specified disorders of teeth and supporting structures (principal)
CPT/HCPCS: 99282

== ENCOUNTER 2017-08-07 19:53 | Emergency (ER) | payer MEDICAID ==
[~2017-08-07] VITALS: Ht 172.7 cm; Wt 78.0 kg
[~2017-08-07 19:53] MED LIST changes: +AMOX500C PO; +HYDR-2376 PO; -IBUP-232 PO; +IBUP1TAB7 PO; -METF500T PO; -PENI500T PO; +insulin
[2017-08-07 20:36] VITALS: BP 143/85; PULSE 111; RESP 20; TEMP 99; O2SAT 96
[2017-08-07] MEDS ORDERED: SODIUM CHLOR 0.9% 1000 ML INJ 1,000 ML IV SCH (21:08)
--- NOTE | 2017-08-07 21:13 | PD ---
HPI Chief Complaint: Abdominal Pain Time Seen by Provider: 21:08 Travel History International Travel<30 days: No Contact w/Intl Traveler<30days: No Traveled to known affect area: No History of Present Illness HPI The patient is a 47-year-old male that complains of generalized abdominal pain, nausea, vomiting and diarrhea for 24 hours. He denies any fever or blood in the stool or vomitus. He has never had any abdominal surgeries and still has his appendix and gallbladder. PFSH Past Medical History Hx Anticoagulant Therapy: No Cardiovascular Problems: No High Cholesterol: Yes Chemotherapy: No Cerebrovascular Accident: No Diabetes: Yes Patient Takes Glucophage: No Diminished Hearing: No Hypertension: Yes Respiratory: Yes (asthma as a child ) Immunizations Current: No Tetanus Vaccination: Unknown Influenza Vaccination: No ?: Not Past Surgical History Hysterectomy: No Other Surgery: Yes (right arm/leg) Family History Family Hypercholesterolemia: Yes Social History Alcohol Use: No Tobacco Use: No Substance Use: No Allergies-Medications (Allergen,Severity, Reaction): Coded Allergies: No Known Allergies (Verified Adverse Reaction, Unknown, 08/07/17) Reported Meds & Prescriptions Reported Meds & Active Scripts Active No Active Prescriptions or Reported Medications Review of Systems Except as stated in HPI: all other systems reviewed are Neg Physical Exam Narrative GENERAL: The patient is alert, oriented 3 in moderate apparent distress with his abdominal discomfort. He does appear moderately dehydrated. His vital signs show heart rate of 111 with blood pressure 143/85 but are otherwise normal. SKIN: Focused skin assessment warm/dry. HEAD: Atraumatic. Normocephalic. EYES: Pupils equal and round. No scleral icterus. No injection or drainage. ENT: No nasal bleeding or discharge. Mucous membranes pink and moist. NECK: Trachea midline. No JVD. CARDIOVASCULAR: Regular rate and rhythm. No murmur appreciated. RESPIRATORY: No accessory muscle use. Clear to auscultation. Breath sounds equal bilaterally. GASTROINTESTINAL: Abdomen soft, with diffuse tenderness in all 4 quadrants to direct palpation no guarding or rebound is present., nondistended. Hepatic and splenic margins not palpable. MUSCULOSKELETAL: No obvious deformities. No clubbing. No cyanosis. No edema. NEUROLOGICAL: Awake and alert. No obvious cranial nerve deficits. Motor grossly within normal limits. Normal speech. PSYCHIATRIC: Appropriate mood and affect; insight and judgment normal. Data Data Last Documented VS Vital Signs Date Time Temp Pulse Resp B/P (MAP) Pulse Ox O2 Delivery O2 Flow Rate FiO2 08/07/17 22:21 99 18 146/81 (102) 95 Room Air 08/07/17 20:36 99.0 Orders Orders Complete Blood Count With Diff (08/07/17 21:08) Comprehensive Metabolic Panel (08/07/17 21:08) Lipase (08/07/17 21:08) Urinalysis - C+S If Indicated (08/07/17 21:08) Ct Abd/Pel W Iv Contrast(Rout) (08/07/17 21:08) Iv Access Insert/Monitor (08/07/17 21:08) Ecg Monitoring (08/07/17 21:08) Oximetry (08/07/17 21:08) Morphine Inj (Morphine Inj) (08/07/17 21:15) Ondansetron Inj (Zofran Inj) (08/07/17 21:15) Sodium Chlor 0.9% 1000 Ml Inj (Ns 1000 M (08/07/17 21:08) Sodium Chloride 0.9% Flush (Ns Flush) (08/07/17 21:15) Sodium Chlor 0.9% 1000 Ml Inj (Ns 1000 M (08/07/17 22:00) Insulin Human Regular Inj (Novolin R Inj (08/07/17 22:00) Iohexol 350 Inj (Omnipaque 350 Inj) (08/07/17 22:38) Vital Signs (Adult) Q4H (08/07/17 23:11) Activity Oob Ad Yenny (08/07/17 23:11) Intake + Output DIMITRIS.QSHIFT (08/07/17 23:11) Diet 1800 Ada Cons Carb (08/08/17 Breakfast) Sodium Chloride 0.9% Flush (Ns Flush) (08/07/17 23:15) Sodium Chloride 0.9% Flush (Ns Flush) (08/08/17 09:00) Basic Metabolic Panel (Bmp) (08/08/17 06:00) Complete Blood Count With Diff (08/08/17 06:00) Case Management Consult (08/07/17 23:11) Scd Bilateral/Knee High DIMITRIS.BID (08/07/17 23:11) Naloxone Inj (Narcan Inj) (08/07/17 23:15) Bedside Glucose DIMITRIS.CSUGAR (08/07/17 23:11) Blood Glucose Goal (Criteria) (08/07/17 23:11) Hypoglycemia 70 Mg/Dl Or < (08/07/17 23:11) Notify Dr: Other (08/07/17 23:11) Dextrose 50% In Kartik (Vial) Inj (D50w (Vi (08/07/17 23:15) Glucagon Inj (Glucagon Inj) (08/07/17 23:15) Insulin Aspart Supplemtl Scale (Novolog (08/08/17 08:00) Hemoglobin (Hgb) A1c (08/07/17 23:11) Place In Observation (08/07/17 ) Labs Laboratory Tests Test 08/07/17 21:00 08/07/17 21:15 Urine Color YELLOW Urine Turbidity CLEAR Urine pH 6.0 Urine Specific [place] GREATER THAN 1.035 Urine Protein NEG mg/dL Urine Glucose (UA) 1000 OR GREATER mg/dL Urine Ketones NEG mg/dL Urine Occult Blood NEG Urine Nitrite NEG Urine Bilirubin NEG Urine Leukocyte Esterase NEG Urine Squamous Epithelial Cells 0-5 /hpf Microscopic Urinalysis Comment CULT NOT INDICATED White Blood Count 8.8 TH/MM3 Red Blood Count 5.05 MIL/MM3 Hemoglobin 15.0 GM/DL Hematocrit 43.1 % Mean Corpuscular Volume 85.3 FL Mean Corpuscular Hemoglobin 29.8 PG Mean Corpuscular Hemoglobin Concent 34.9 % Red Cell Distribution Width 12.8 % Platelet Count 279 TH/MM3 Mean Platelet Volume 7.8 FL Neutrophils (%) (Auto) 60.3 % Lymphocytes (%) (Auto) 27.3 % Monocytes (%) (Auto) 6.5 % Eosinophils (%) (Auto) 4.8 % Basophils (%) (Auto) 1.1 % Neutrophils # (Auto) 5.2 TH/MM3 Lymphocytes # (Auto) 2.4 TH/MM3 Monocytes # (Auto) 0.6 TH/MM3 Eosinophils # (Auto) 0.4 TH/MM3 Basophils # (Auto) 0.1 TH/MM3 CBC Comment DIFF FINAL Differential Comment Blood Urea Nitrogen 13 MG/DL Creatinine 1.10 MG/DL Random Glucose 498 MG/DL Total Protein 7.5 GM/DL Albumin 3.2 GM/DL Calcium Level 8.5 MG/DL Alkaline Phosphatase 147 U/L Aspartate Amino Transf (AST/SGOT) 15 U/L Alanine Aminotransferase (ALT/SGPT) 34 U/L Total Bilirubin 0.3 MG/DL Sodium Level 133 MEQ/L Potassium Level 3.8 MEQ/L Chloride Level 97 MEQ/L Carbon Dioxide Level 30.0 MEQ/L Anion Gap 6 MEQ/L Estimat Glomerular Filtration Rate 72 ML/MIN Lipase 97 U/L MDM Medical Decision Making Medical Screen Exam Complete: Yes Emergency Medical Condition: Yes Medical Record Reviewed: Yes Interpretation(s) The CT abdomen/pelvis shows no evidence of acute abdominal or pelvic process. He does have fatty infiltration present. The urine shows specific gravity greater than 1.035 and 1000 glucose but is otherwise normal and cultures not indicated. The CBC is normal. The complete metabolic profile shows glucose 498 , GFR of 72, albumin 3.2, alkaline phosphatase 147 with sodium 133 but is otherwise unremarkable. The lipase is normal. Differential Diagnosis Diabetes mellitus poor control, dehydration, gastroparesis, pancreatitis, colitis, small bowel obstruction, gastroenteritis, electrolyte disorder Narrative Course The patient has noncompliance with physician follow-up, hyperglycemia because of diabetes mellitus poor control, gastroparesis, moderate dehydration. Physician Communication Physician Communication Discussed the patient with the physician human resources executive assistant. The patient will be admitted to Dr. Whalen. Diagnosis Primary Impression: Gastroparesis Additional Impressions: Poorly controlled diabetes mellitus Noncompliance Moderate dehydration Admitting Information Admitting Physician Requests: Admit Scripts No Active Prescriptions or Reported Meds Yoan Bansal MD Aug 07, 2017 21:13
[2017-08-07] MEDS ORDERED: SODIUM CHLORIDE 0.9% FLUSH 10 ML FLUSH IV FLUSH PRN ×2 (21:15→23:15)
[2017-08-07] MEDS ORDERED: ONDANSETRON HCL 4 MG/2 ML VIAL IVP ONE (21:15)
[2017-08-07] MEDS ORDERED: MORPHINE SULFATE 4 MG/ML INJ IV PUSH ONE (21:15)
[2017-08-07 21:24] LABS: AUTOMATED NEUTROPHIL # 5.2 TH/MM3 (1.8-7.7); BASOPHIL # 0.1 TH/MM3 (0-0.2); BASOPHIL % 1.1 % (0.0-2.0); EOSINOPHIL # 0.4 TH/MM3 (0-0.4); EOSINOPHIL % 4.8 % (0.0-4.0); HEMATOCRIT 43.1 % (39.0-51.0); LYMPH % 27.3 % (9.0-44.0); LYMPHOCYTE # 2.4 TH/MM3 (1.0-4.8); MEAN CELL VOLUME 85.3 FL (80.0-100.0); MEAN CORPUSCULAR HEMOGLOBIN 29.8 PG (27.0-34.0); MEAN CORPUSCULAR HGB CONC 34.9 % (32.0-36.0); MEAN PLATELET VOLUME 7.8 FL (7.0-11.0); MONO % 6.5 % (0.0-8.0); MONOCYTE # 0.6 TH/MM3 (0-0.9); NEUT % 60.3 % (16.0-70.0); PLATELET COUNT 279 TH/MM3 (150-450); RED BLOOD COUNT 5.05 MIL/MM3 (4.50-5.90); RED CELL DISTRIBUTION WIDTH 12.8 % (11.6-17.2); WHITE BLOOD COUNT 8.8 TH/MM3 (4.0-11.0)
[2017-08-07 21:35] LABS: BILIRUBIN, URINE NEG (NEG); BLOOD, URINE NEG (NEG); GLUCOSE,URINE 1000 OR GREATER mg/dL (NEG); KETONE, URINE NEG (NEG); NITRITE,URINE NEG (NEG); URINE LEUKOCYTE ESTERASE NEG (NEG)
[2017-08-07 21:35] LABS: CHLORIDE 97 MEQ/L (98-107); SODIUM (NA) 133 MEQ/L (136-145)
[2017-08-07 21:39] LABS: CALCIUM 8.5 MG/DL (8.5-10.1)
[2017-08-07 21:40] LABS: ALBUMIN 3.2 GM/DL (3.4-5.0)
[2017-08-07 21:45] LABS: ALKALINE PHOSPHATASE 147 U/L (45-117); ALT (GPT) 34 U/L (12-78); AST (GOT) 15 U/L (15-37); BLOOD UREA NITROGEN 13 MG/DL (7-18); GLOMERULAR FILTRATION RATE 72 ML/MIN (>89); TOTAL BILIRUBIN ADULT 0.3 MG/DL (0.2-1.0); TOTAL PROTEIN 7.5 GM/DL (6.4-8.2)
[2017-08-07 21:50] LABS: URINE COLOR YELLOW (YELLW/STRAW)
[2017-08-07 21:55] LABS: SQUAMOUS EPITHELIAL CELL URINE 0-5 /hpf (0-5)
[2017-08-07 21:57] LABS: GLUCOSE,RANDOM 498 MG/DL (74-106)
[2017-08-07] MEDS ORDERED: INSULIN HUMAN REGULAR 1,000 UNITS/10 ML VIAL IV PUSH ONE (22:00)
[2017-08-07] MEDS: SODIUM CHLOR 0.9% 1000 ML INJ 1,000 ML IV SCH ×2 (22:08→23:30)
[2017-08-07 22:21] VITALS: BP 146/81; PULSE 99; RESP 18; O2SAT 95
[2017-08-07] MEDS ORDERED: IOHEXOL 350 MG/ML 10 ML VIAL (for RAD DIAG) IVCONTRAST ONE (22:38)
--- NOTE | 2017-08-07 22:53 | RADRPT ---
EXAM DATE/TIME: 08/07/2017 22:25 [place] COMPARISON: No previous studies available for comparison. INDICATIONS : Diffuse abdominal pain, nausea, vomiting and diarrhea. IV CONTRAST: 100 cc Omnipaque 350 (iohexol) IV ORAL CONTRAST: No oral contrast ingested. RADIATION DOSE: 8.56 CTDIvol (mGy) MEDICAL HISTORY : Hypertension. SURGICAL HISTORY : None. ENCOUNTER: Initial ACUITY: 3 days PAIN SCALE: 7/10 LOCATION: Bilateral lower quadrant upper quadrant TECHNIQUE: Volumetric scanning of the abdomen and pelvis was performed. Using automated exposure control and ad justment of the mA and/or kV according to patient size, radiation dose was kept as low as reasonably achievable to obtain optimal diagnostic quality images. DICOM format image data is available electro nically for review and comparison. FINDINGS: Examination of the lung bases demonstrates no abnormality. No pleural fluid is identified. No pulmona ry nodules are present. There is decreased density of the liver with respect to the spleen compatible with fatty infiltration. The spleen is unremarkable. The gallbladder and pancreas are unremarkable. No intrahepatic or extrahepatic ductal dilatation is seen. The adrenal glands and kidneys appear norm al bilaterally. No hydronephrosis or mass lesions are identified. Examination of the pelvis demonstrates no evidence of free fluid or pelvic mass. No abnormally enlarg ed inguinal or retroperitoneal lymph nodes are present. The bladder is unremarkable. Examination of t he right lower quadrant demonstrates no abnormality. The appendix is identified and appears normal. CONCLUSION: 1. No evidence of acute abdominal or pelvic process. No masses are identified. Hypodense liver compat ible with fatty infiltration or hepatocellular disease. Kelvin Day MD on August 07, 2017 at 22:50 Board Certified Radiologist. This report was verified electronically.
[2017-08-07] MEDS ORDERED: GLUCAGON 1 MG/ML VIAL OTHER PRN (23:15)
[2017-08-07] MEDS ORDERED: DEXTROSE 50% IN WATER 50 ML VIAL(D50) IV PUSH PRN (23:15)
[2017-08-07] MEDS ORDERED: NALOXONE HCL 0.4 MG/ML AMP IV PUSH PRN (23:15)
[2017-08-08 00:13] VITALS: BP 127/69
[2017-08-08] MEDS ORDERED: INSULIN ASPART SUPPLEMENTAL SCALE SQ SCH (08:00)
[2017-08-08] MEDS ORDERED: SODIUM CHLORIDE 0.9% FLUSH 10 ML FLUSH IV FLUSH SCH (09:00)
[2017-08-08 10:59] LABS: HEMOGLOBIN A1C 13.3 % (4.3-6.0)
== END 2017-08-08 00:16 | disposition left against medical advice (07) ==
LOC: PHED 19:53
DX: E11.43 Type 2 diabetes mellitus with diabetic autonomic (poly)neuropathy (principal); K31.84 Gastroparesis; E11.65 Type 2 diabetes mellitus with hyperglycemia; E86.0 Dehydration; E78.00 Pure hypercholesterolemia, unspecified; I10 Essential (primary) hypertension; Z91.19 Patient's noncompliance with other medical treatment and regimen
CPT/HCPCS: 74177; 80053; 81001; 83036; 83690; 85025; 96361; 96374; 96375; 99285; G0378; J1815; J2270; J2405; J7030; Q9967

== ENCOUNTER 2017-09-26 23:04 | Emergency (ER) | payer MEDICAID ==
[~2017-09-26] VITALS: Ht 172.7 cm; Wt 78.4 kg
[2017-09-26 23:07] VITALS: BP 140/80; PULSE 81; RESP 16; TEMP 99.1; O2SAT 98
--- NOTE | 2017-09-26 23:29 | PD ---
HPI Chief Complaint: Skin Problem Time Seen by Provider: 23:18 Travel History International Travel<30 days: No Contact w/Intl Traveler<30days: No Traveled to known affect area: No History of Present Illness HPI The patient is a 47-year-old male who complains of an abscess at the belt line posteriorly for 4 days. He is diabetic and has taken metformin. He is not on any medications at this time. He denies any fever. He claims a pain of 8/10 and a sharp pain. PFSH Past Medical History Hx Anticoagulant Therapy: No Cardiovascular Problems: No High Cholesterol: Yes Chemotherapy: No Cerebrovascular Accident: No Diabetes: Yes Diminished Hearing: No Hypertension: Yes Respiratory: Yes (asthma as a child ) Immunizations Current: No Past Surgical History Hysterectomy: No Other Surgery: Yes (right arm/leg) Family History Family Hypercholesterolemia: Yes Social History Alcohol Use: No Tobacco Use: No Substance Use: No Allergies-Medications (Allergen,Severity, Reaction): Coded Allergies: No Known Allergies (Verified Adverse Reaction, Unknown, 09/26/17) Reported Meds & Prescriptions Reported Meds & Active Scripts Active No Active Prescriptions or Reported Medications Review of Systems Except as stated in HPI: all other systems reviewed are Neg Physical Exam Narrative GENERAL: Well-nourished, well-developed patient in slight apparent distress with his abscess discomfort on the right posterior belt line. His vital signs are normal. SKIN: Focused skin assessment warm/dry. There is a 1 cm abscess on the right posterior beltline. It is indurated but I cannot feel any fluctuance present. There is two centimeter diameter of cellulitis surrounding the abscess. HEAD: Normocephalic. EYES: No scleral icterus. No injection or drainage. NECK: Supple, trachea midline. No JVD or lymphadenopathy. CARDIOVASCULAR: Regular rate and rhythm without murmurs, gallops, or rubs. RESPIRATORY: Breath sounds equal bilaterally. No accessory muscle use. GASTROINTESTINAL: Abdomen soft, non-tender, nondistended. MUSCULOSKELETAL: No cyanosis, or edema. BACK: Nontender without obvious deformity. No CVA tenderness. Data Data Last Documented VS Vital Signs Date Time Temp Pulse Resp B/P (MAP) Pulse Ox O2 Delivery O2 Flow Rate FiO2 09/26/17 23:07 99.1 81 16 140/80 (100) 98 Orders Orders Lidocai-Epi 1%-1:100,000 Inj (Xylocaine- (4/18/18 23:30) MDM Medical Decision Making Medical Screen Exam Complete: Yes Emergency Medical Condition: Yes Medical Record Reviewed: Yes Differential Diagnosis Abscess, pilonidal cyst, cellulitis Narrative Course The patient had an abscess of the skin at the belt line. This was incised and drained and the patient will need to sit in a tub of warm water twice daily, 30 minutes each time, for about 3 or 4 days. He is given Septra DS to cover the cellulitis. Procedures Procedure Narrative The area was prepped in Betadine. The area was infiltrated with lidocaine with epinephrine and field block fashion and, under sterile technique, a 1 cm incision was made over the abscess. About 1 cm of pus was recovered. The abscess cavity was cleaned with peroxide moistened Q-tips. The patient tolerated the procedure fairly well. Diagnosis Primary Impression: Abscess Additional Impressions: Encounter for incision and drainage procedure Cellulitis Additional Instructions: As we discussed, the medication is free at [facility]. It is 1 tablet twice daily for 10 days. Sit in a tub of warm water twice daily, 30 minutes each time for about 4-5 days until the wound starts healing. Always keep the wound covered because it is right at the belt line and will bother you. If you have any problems, please return to emergency department. Med/Other Pt SpecificInfo: Prescription(s) given Scripts Sulfamethoxazole-Trimethoprim (Bactrim DS) 800-160 Mg Tab 1 TAB PO BID for Infection, #20 TAB 0 Refills Prov: Yoan Bansal MD 09/26/17 Disposition: 01 DISCHARGE HOME Condition: Stable Yoan Bansal MD Sep 26, 2017 23:29
[2017-09-26] MEDS ORDERED: LIDOCAINE 1%/EPINEPHrine 1:100,000 SOLN 20 ML VIAL INFIL ONE (23:30)
[2017-09-26] MEDS ORDERED: LIDOCAINE 1%/EPINEPHrine 1:100,000 SOLN 50 ML VIAL INFIL ONE (23:30)
[2017-09-26] MEDS ORDERED: BACT800T5 PO (23:49)
[2017-09-27] MEDS ORDERED: SULFAMETHOXAZOLE-TRIMETHOPRIM DS 800-160 MG TAB PO ONE
== END 2017-09-27 00:30 | disposition home or self-care (01) ==
LOC: PHED 23:04
DX: L02.219 Cutaneous abscess of trunk, unspecified (principal); L03.319 Cellulitis of trunk, unspecified; E78.00 Pure hypercholesterolemia, unspecified; E11.9 Type 2 diabetes mellitus without complications; J45.909 Unspecified asthma, uncomplicated; I10 Essential (primary) hypertension
CPT/HCPCS: 10060

== ENCOUNTER 2017-10-23 20:39 | Emergency (ER) | payer MEDICAID ==
[~2017-10-23] VITALS: Ht 172.7 cm; Wt 80.2 kg
[~2017-10-23 20:39] MED LIST changes: -AMOX500C PO; +BACT800T5 PO; -HYDR-2376 PO; -IBUP1TAB7 PO; -insulin
[2017-10-23 20:44] VITALS: BP 148/92; PULSE 91; RESP 16; TEMP 98.5; O2SAT 99
[2017-10-23] MEDS ORDERED: METF500T PO (20:47)
[2017-10-23] MEDS ORDERED: LOSA100T PO (20:51)
[2017-10-23] MEDS ORDERED: SODIUM CHLOR 0.9% 1000 ML INJ 1,000 ML IV SCH (21:35)
--- NOTE | 2017-10-23 21:35 | PD ---
HPI Chief Complaint: GI Complaint Time Seen by Provider: 21:31 Travel History International Travel<30 days: No Contact w/Intl Traveler<30days: No Traveled to known affect area: No History of Present Illness HPI Patient comes in complaining of nausea vomiting diarrhea over the past 2 hours, she has had crampy abdominal pain, nonradiating, 5 out of 10. No alleviating or aggravating factors. Denies any associated factors such as fever, rash, chest pain, headache, back pain, flank pain or any symptoms of sore throat/ runny nose/cough/shortness of breath. No known drug allergy Past medical history significant for corrective lenses, hypertension, hypercholesterolemia, diabetes, asthma as a child. PFSH Past Medical History Hx Anticoagulant Therapy: No Cardiovascular Problems: Yes (HTN) High Cholesterol: Yes Chemotherapy: No Cerebrovascular Accident: No Diabetes: Yes (ON METFORMIN) Patient Takes Glucophage: Yes Diminished Hearing: No Hypertension: Yes Respiratory: Yes (asthma as a child ) Immunizations Current: No Influenza Vaccination: No Past Surgical History Hysterectomy: No Other Surgery: Yes (right arm/leg) Family History Family Hypercholesterolemia: Yes Social History Alcohol Use: No Tobacco Use: No Substance Use: No Allergies-Medications (Allergen,Severity, Reaction): Coded Allergies: No Known Allergies (Verified Adverse Reaction, Unknown, 10/23/17) Reported Meds & Prescriptions Reported Meds & Active Scripts Active Reported Losartan (Losartan Potassium) 100 Mg Tab 100 Mg PO DAILY PRN Metformin (Metformin HCl) 500 Mg Tab 500 Mg PO BIDPC Review of Systems General / Constitutional: No: Fever Eyes: No: Visual changes HENT: No: Headaches Cardiovascular: No: Chest Pain or Discomfort Respiratory: No: Shortness of Breath Gastrointestinal: Positive: Nausea, Vomiting, Diarrhea Genitourinary: No: Dysuria Musculoskeletal: No: Pain Skin: No Rash Neurologic: No: Weakness Psychiatric: No: Depression Endocrine: No: Polydipsia Hematologic/Lymphatic: No: Easy Bruising Physical Exam Narrative GENERAL: SKIN: Warm and dry. HEAD: Atraumatic. Normocephalic. EYES: Pupils equal and round. No scleral icterus. No injection or drainage. ENT: No nasal bleeding or discharge. Mucous membranes pink and moist. NECK: Trachea midline. No JVD. CARDIOVASCULAR: Regular rate and rhythm. RESPIRATORY: No accessory muscle use. Clear to auscultation. Breath sounds equal bilaterally. GASTROINTESTINAL: Abdomen soft, non-tender, nondistended. MUSCULOSKELETAL: Extremities without clubbing, cyanosis, or edema. No obvious deformities. NEUROLOGICAL: Awake and alert. No obvious cranial nerve deficits. Motor grossly within normal limits. Five out of 5 muscle strength in the arms and legs. Normal speech. PSYCHIATRIC: Appropriate mood and affect; insight and judgment normal. Data Data Last Documented VS Vital Signs Date Time Temp Pulse Resp B/P (MAP) Pulse Ox O2 Delivery O2 Flow Rate FiO2 10/23/17 22:26 85 16 142/89 (106) 98 Room Air 10/23/17 20:44 98.5 Orders Orders Complete Blood Count With Diff (10/23/17 21:35) Comprehensive Metabolic Panel (10/23/17 21:35) Lipase (10/23/17 21:35) Iv Access Insert/Monitor (10/23/17 21:35) Ecg Monitoring (10/23/17 21:35) Oximetry (10/23/17 21:35) NPO (10/23/17 21:35) Sodium Chlor 0.9% 1000 Ml Inj (Ns 1000 M (10/23/17 21:35) Sodium Chloride 0.9% Flush (Ns Flush) (10/23/17 21:45) Ketorolac Inj (Toradol Inj) (10/23/17 21:45) Prochlorperazine Inj (Compazine Inj) (10/23/17 21:45) Diphenhydramine Inj (Benadryl Inj) (10/23/17 22:15) Labs Laboratory Tests Test 10/23/17 21:25 White Blood Count 7.2 TH/MM3 Red Blood Count 5.36 MIL/MM3 Hemoglobin 15.1 GM/DL Hematocrit 45.5 % Mean Corpuscular Volume 84.9 FL Mean Corpuscular Hemoglobin 28.1 PG Mean Corpuscular Hemoglobin Concent 33.2 % Red Cell Distribution Width 12.9 % Platelet Count 296 TH/MM3 Mean Platelet Volume 8.4 FL Neutrophils (%) (Auto) 58.3 % Lymphocytes (%) (Auto) 27.8 % Monocytes (%) (Auto) 6.3 % Eosinophils (%) (Auto) 6.8 % Basophils (%) (Auto) 0.8 % Neutrophils # (Auto) 4.1 TH/MM3 Lymphocytes # (Auto) 2.0 TH/MM3 Monocytes # (Auto) 0.5 TH/MM3 Eosinophils # (Auto) 0.5 TH/MM3 Basophils # (Auto) 0.1 TH/MM3 CBC Comment DIFF FINAL Differential Comment Blood Urea Nitrogen 16 MG/DL Creatinine 0.87 MG/DL Random Glucose 316 MG/DL Total Protein 7.0 GM/DL Albumin 3.3 GM/DL Calcium Level 9.2 MG/DL Alkaline Phosphatase 137 U/L Aspartate Amino Transf (AST/SGOT) 12 U/L Alanine Aminotransferase (ALT/SGPT) 34 U/L Total Bilirubin 0.2 MG/DL Sodium Level 137 MEQ/L Potassium Level 3.9 MEQ/L Chloride Level 102 MEQ/L Carbon Dioxide Level 28.2 MEQ/L Anion Gap 7 MEQ/L Estimat Glomerular Filtration Rate 94 ML/MIN Lipase 199 U/L [facility] Medical Decision Making Medical Screen Exam Complete: Yes Emergency Medical Condition: Yes Medical Record Reviewed: Yes Differential Diagnosis Gastroenteritis versus bronchitis versus hepatitis Narrative Course CBC shows no leukocytosis, no anemia, no left shift, normal platelet count Electrolytes are all within normal limits, except for random glucose of 316 Normal kidney liver and pancreatic functions Diagnosis Primary Impression: Hyperglycemia Additional Impression: Gastroenteritis Patient Instructions: Gastroenteritis (ED), General Instructions Scripts Tramadol (Ultram) 50 Mg Tab 50 MG PO Q8H Y for PAIN, #14 TAB 0 Refills Prov: Jonas Orlnado MD 10/23/17 Ondansetron Odt (Zofran Odt) 4 Mg Tab 4 MG SL Q6HR Y for Nausea/Vomiting, #20 TAB 0 Refills Prov: Jonas Orlando MD 10/23/17 Disposition: 01 DISCHARGE HOME Condition: Stable Jonas Orlando MD October 23, 2017 21:35
[2017-10-23] MEDS ORDERED: SODIUM CHLORIDE 0.9% FLUSH 10 ML FLUSH IV FLUSH PRN (21:45)
[2017-10-23] MEDS ORDERED: KETOROLAC TROMETHAMINE 30 MG/ML (IVP) VIAL IVP ONE (21:45)
[2017-10-23] MEDS ORDERED: PROCHLORPERAZINE INJ 10 MG/2 ML VIAL IV PUSH ONE (21:45)
[2017-10-23 21:51] LABS: AUTOMATED NEUTROPHIL # 4.1 TH/MM3 (1.8-7.7); BASOPHIL # 0.1 TH/MM3 (0-0.2); BASOPHIL % 0.8 % (0.0-2.0); EOSINOPHIL # 0.5 TH/MM3 (0-0.4); EOSINOPHIL % 6.8 % (0.0-4.0); HEMATOCRIT 45.5 % (39.0-51.0); HEMOGLOBIN 15.1 GM/DL (13.0-17.0); LYMPH % 27.8 % (9.0-44.0); MEAN CELL VOLUME 84.9 FL (80.0-100.0); MEAN CORPUSCULAR HEMOGLOBIN 28.1 PG (27.0-34.0); MEAN CORPUSCULAR HGB CONC 33.2 % (32.0-36.0); MEAN PLATELET VOLUME 8.4 FL (7.0-11.0); MONO % 6.3 % (0.0-8.0); MONOCYTE # 0.5 TH/MM3 (0-0.9); NEUT % 58.3 % (16.0-70.0); PLATELET COUNT 296 TH/MM3 (150-450); RED BLOOD COUNT 5.36 MIL/MM3 (4.50-5.90); RED CELL DISTRIBUTION WIDTH 12.9 % (11.6-17.2); WHITE BLOOD COUNT 7.2 TH/MM3 (4.0-11.0)
[2017-10-23 21:58] LABS: CHLORIDE 102 MEQ/L (98-107); SODIUM (NA) 137 MEQ/L (136-145)
[2017-10-23 22:02] LABS: ALBUMIN 3.3 GM/DL (3.4-5.0); BICARBONATE 28.2 MEQ/L (21.0-32.0); CALCIUM 9.2 MG/DL (8.5-10.1); GLUCOSE,RANDOM 316 MG/DL (74-106)
[2017-10-23 22:03] LABS: BLOOD UREA NITROGEN 16 MG/DL (7-18)
[2017-10-23 22:05] LABS: ALT (GPT) 34 U/L (12-78); AST (GOT) 12 U/L (15-37); CREATININE 0.87 MG/DL (0.60-1.30); GLOMERULAR FILTRATION RATE 94 ML/MIN (>89)
[2017-10-23 22:07] LABS: TOTAL BILIRUBIN ADULT 0.2 MG/DL (0.2-1.0)
[2017-10-23 22:08] LABS: ALKALINE PHOSPHATASE 137 U/L (45-117)
[2017-10-23] MEDS ORDERED: diphenhydrAMINE HCL 50 MG/ML VIAL IV PUSH ONE (22:15)
[2017-10-23 22:26] VITALS: BP 142/89; PULSE 85; RESP 16; O2SAT 98
[2017-10-23] MEDS ORDERED: ZOFR4TAB3 SL (22:28)
[2017-10-23] MEDS ORDERED: TRAM50 PO (22:28)
== END 2017-10-23 22:44 | disposition home or self-care (01) ==
LOC: PHED 20:39
DX: E11.65 Type 2 diabetes mellitus with hyperglycemia (principal); K52.9 Noninfective gastroenteritis and colitis, unspecified; E78.00 Pure hypercholesterolemia, unspecified; I10 Essential (primary) hypertension
CPT/HCPCS: 80053; 83690; 85025; 96361; 96374; 99284; J0780; J1885; J7030

== ENCOUNTER 2018-01-22 04:34 | Observation (INO) ==
--- NOTE | 2018-01-22 04:53 | ED ---
HPI General Chief complaint: Chest Pain Stated complaint: Chest Pain Time Seen by Provider: 01/22/18 04:43 Source: patient, RN notes reviewed and old records reviewed Mode of arrival: ambulatory History of Present Illness HPI narrative: 47yM presenting with chest pain. The patient states that around midnight he began to have gradual-onset left-sided chest pain which he describes as "cramping", constant, radiates to his left shoulder/ jaw, not made better or worse by anything, associated with dizziness, nausea, and 2 episodes of vomiting. Denies diaphoresis, cough, dyspnea, abdominal pain, diarrhea, or dysuria. PMH of diabetes, HTN, HLD Family history significant for mother with fatal LA in her 60s. Related Data Allergies Allergy/AdvReac Type Severity Reaction Status Date / Time No Known Allergies AdvReac Unknown Uncoded 10/23/17 20:44 Review of Systems ROS: all other systems reviewed are negative Constitutional Denies fever(s) ENT Denies nasal congestion Cardiovascular Reports chest pain Respiratory Denies cough and Denies dyspnea Gastrointestinal Denies abdominal pain, Reports nausea and Reports vomiting Genitourinary Denies dysuria Musculoskeletal Denies back pain Neurologic Denies dizziness Psychiatric Denies confusion PMFSH History History Provided By: Patient Medical History Medical History Diabetes (Acute) Hyperlipidemia (Acute) Hypertension (Acute) Family History Family History Mother No problems noted. Social History Social History Substance History: No History of Abuse Second Hand Smoke Exposure: No Smoking Status: Never smoker How Often Do You Have a Drink Containing Alcohol: Never Recent Travel in [facility] within the Last 8 Weeks: No Recent Out of Country Travel within the Last 8 Weeks: No Exam Const General: healthy appearing and no acute distress [facility] Head: normocephalic and atraumatic Face and sinus: normal facial exam Eyes General: appearance normal, both eyes and all related structures Pupils: PERRL Chest Chest: normal inspection of the chest Other: Mild tenderness to palpation of left chest, normal ROM of left shoulder Resp Effort & Inspection: normal respiratory effort Auscultation: no rhonchi and no wheezes Cardio Rate: regular rate Rhythm: regular rhythm GI Inspection: non-distended Palpation: soft and nontender Skin General: no rashes or lesions noted Other: Non-diaphoretic Neuro General: alert, awake, oriented x3 and no focal motor deficits Psych Affect: normal affect Course Initial Documented Vital Signs Temperature 98.2 F 01/22/18 04:35 Pulse Rate 76 01/22/18 04:35 Respiratory Rate 16 01/22/18 04:35 Blood Pressure 143/81 H 01/22/18 04:35 Pulse Oximetry 100 01/22/18 04:35 Last Documented Vital Signs Temperature 98.2 F 01/22/18 04:35 Pulse Rate 80 01/22/18 05:09 Respiratory Rate 16 01/22/18 04:35 Blood Pressure 143/81 H 01/22/18 04:35 Pulse Oximetry 100 01/22/18 04:35 Clinical Decision Support HEART Score Questions History: Moderately suspicious EKG: Normal Age: 45-64 years Risk Factors: 3 or more Risk Factors or Hx of Atherosclerotic Disease Initial Troponin: Normal Limit Heart Score HEART Score: 4 PERC Rule Age greater than or equal to 50: No HR greather than or equal to 100: No Sa02 on room air is less than 95%: No Unilateral Leg Swelling: No Hemoptysis: No Recent Surgery or Trauma: No Prior PE or DVT: No Hormone Use: No PERC negative Medical Decision Making MDM Narrative Medical decision making narrative: Assessment: 47yM presenting with chest pain Plan: EKG and monitor CXR ASA Labs Addendum: Patient's trop negative x 1, no change in EKG as compared to previous. Labs reveal glucose of 400 without anion gap; review of previous records show that the patient is poorly-controlled at baseline. IV insulin given and will recheck FSBG in 30 minutes. This patient cannot go home as he has chest pain concerning for ACS in the setting of multiple risk factors and a family history of CAD/ LA. Will place orders for chest pain center obs. Patient understands and agrees with plan. Differential Diagnosis Differential Diagnosis: Differential diagnosis includes, but is not limited to: ACS, pneumonia, pericarditis, pleuritis, musculoskeletal pain Medical Records Medical records reviewed: Yes I reviewed the patient's medical records. Lab Data Result diagrams: 01/22/18 05:00 01/22/18 05:00 Lab Results 01/22/18 01/22/18 01/22/18 Range/Units 05:00 05:00 05:00 WBC 7.1 (4.0-11.0) th/mm3 RBC 4.97 (4.50-5.90) mil/mm3 Hgb 14.7 (13.0-17.0) gm/dL Hct 42.9 (39.0-51.0) % MCV 86.4 (80.0-100.0) fL MCH 29.5 (27.0-34.0) pg MCHC 34.2 (32.0-36.0) % RDW 13.3 (11.6-17.2) % Plt Count 249 (150-450) th/mm3 MPV 8.0 (7.0-11.0) fL Neut % (Auto) 55.1 (16.0-70.0) % Lymph % (Auto) 29.0 (9.0-44.0) % [place] % (Auto) 9.0 H (0.0-8.0) % Eos % (Auto) 6.2 H (0.0-4.0) % Baso % (Auto) 0.7 (0.0-2.0) % Neut # (Auto) 3.9 (1.8-7.7) th/mm3 Lymph # (Auto) 2.1 (1.0-4.8) th/mm3 [place] # (Auto) 0.6 (0.0-0.9) th/mm3 Eos # (Auto) 0.4 (0.0-0.4) th/mm3 Baso # (Auto) 0.0 (0.0-0.2) th/mm3 WBC Differential . Differential Comment Auto diff final PT 9.5 L (9.8-11.6) sec INR 0.9 Ratio Sodium 138 (136-145) meq/L Potassium 4.2 (3.5-5.1) meq/L Chloride 103 (98-107) meq/L Carbon Dioxide 27.7 (21.0-32.0) meq/L Anion Gap 7 (5-15) meq/L BUN 20 H (7-18) mg/dL Creatinine 1.05 (0.60-1.30) mg/dL Estimated GFR 76 L (>89) mL/min Random Glucose 404 H (74-106) mg/dL Calcium 8.7 (8.5-10.1) mg/dL Troponin I Less than 0.02 L (0.02-0.05) ng/mL Imaging Data Attestation: I personally reviewed and interpreted this imaging study as follows : My impression: CXR- Airway midline. No focal infiltrates. No pneumothorax. No pleural effusion. Cardiac and mediastinal silhouettes within normal limits. Radiologist's impression: Chest X-Ray 01/22/18 04:49 CONCLUSION: No acute cardiopulmonary disease ECG Data Attestation: I personally reviewed and interpreted this ECG as follows: Interpretation: Rate: 70 BPM Rhythm: Sinus [place]: Normal Intervals: Normal intervals, no blocks, QTc 407 ms Q waves: None T waves: Inverted in III ST segments: No elevations or depressions Impression: Non-specific EKG, no changes as compared to EKG from 01/25/2017. Discharge Plan Discharge Disposition Patient Disposition: 30 Still Patient Discharge Condition Condition: Good Discharge Details Diagnosis: Chest pain, Hyperglycemia Physicians Team ED Provider: Kelsea Rodriguez Primary Care Provider: UNKNOWN, Discharge Instructions Patient Printed Instructions: Chest Pain (ED) Status ED Status: With Doctor
--- NOTE | 2018-01-22 05:14 | XR ---
EXAM DATE: 01/22/2018 5:04 AM EDT AGE/SEX: 47 years / Male INDICATIONS: Chest pain for 2 days. CLINICAL DATA: This is the patient's initial encounter. Patient reports that signs and symptoms have been present for 2 days and indicates a pain score of 10/10. MEDICAL/SURGICAL HISTORY: None. None. COMPARISON: HPO, CHEST SINGLE AP, 01/25/2017. . FINDINGS: A single AP view of the chest demonstrates the lungs to be symmetrically aerated without evidence of mass, infiltrate or effusion. The cardiomediastinal contours are unremarkable. Osseous structures a re intact. CONCLUSION: No acute cardiopulmonary disease Electronically signed by: Fazal Zazueta MD 01/22/2018 5:13 AM EDT
[2018-01-22 05:18] LABS: Baso % (Auto) 0.7 % (0.0-2.0); Eos # (Auto) 0.4 th/mm3 (0.0-0.4); Eos % (Auto) 6.2 % (0.0-4.0); Hematocrit 42.9 % (39.0-51.0); Hemoglobin 14.7 gm/dL (13.0-17.0); Lymph # (Auto) 2.1 th/mm3 (1.0-4.8); Mean Corpuscular HGB Conc 34.2 % (32.0-36.0); Mean Corpuscular Hemoglobin 29.5 pg (27.0-34.0); Mean Corpuscular Volume 86.4 fL (80.0-100.0); Mono # (Auto) 0.6 th/mm3 (0.0-0.9); Neut # (Auto) 3.9 th/mm3 (1.8-7.7); Neut % (Auto) 55.1 % (16.0-70.0); Platelet Count 249 th/mm3 (150-450); Red Blood Count 4.97 mil/mm3 (4.50-5.90); Red Cell Distribution Width 13.3 % (11.6-17.2); White Blood Count 7.1 th/mm3 (4.0-11.0)
[2018-01-22 05:24] LABS: INR 0.9 Ratio; Prothrombin Time 9.5 sec (9.8-11.6)
[2018-01-22 05:34] LABS: Anion Gap 7 meq/L (5-15); Blood Urea Nitrogen 20 mg/dL (7-18); Calcium 8.7 mg/dL (8.5-10.1); Carbon Dioxide 27.7 meq/L (21.0-32.0); Chloride 103 meq/L (98-107); Glomerular Filtration Rate 76 mL/min (>89); Glucose,Random 404 mg/dL (74-106); Potassium 4.2 meq/L (3.5-5.1); Sodium 138 meq/L (136-145)
[2018-01-22] MEDS ORDERED: Acetaminophen 500 MG Tablet PO PRN (05:53)
[2018-01-22] MEDS ORDERED: Aspirin 325 MG Tablet PO SCH (09:00)
[2018-01-22 09:25] VITALS: RESP 16
--- NOTE | 2018-01-22 10:28 | P.HPCA ---
History of Present Illness Primary Care Physician: UNKNOWN Chief Complaint: Chest pain History of Present Illness: This is a 47-year-old male with history of hypertension, hyperlipidemia, diabetes with complaint of chest discomfort patient states he has never taken the medication prescribed to him for his illnesses but states they are available to him at his house. He presents to the ED with complaint of chest discomfort that woke him around midnight while sleeping on his couch. It was a aching discomfort that is still present at this time but it has improved significantly. Currently the discomfort is worsened by pressing on that left upper chest or by moving his left arm across the chest. Denies associated shortness of breath, nausea, or diaphoresis. Cannot recall any recent trauma. Denies recent illness. Denies fevers or chills. Denies prior cardiac workup. Lifetime non-smoker. States his mother at age 60 of a myocardial infarction. - Diagnosis (1) Chest pain (2) Diabetes (3) Hypertension (4) Hyperlipidemia (5) Noncompliance with medication regimen Review of Systems General: Patient denies fevers, chills, and recent travel. HEENT: Patient denies headache, sore throat, difficulty swallowing. Cardiovascular: Has the chest discomfort as mentioned above. Denies sensation of heart beating rapidly or irregularly. No syncope. Denies diaphoresis. Respiratory: Denies shortness of breath or inspirational chest discomfort. Denies coughing wheezing or hemoptysis. GI: Patient denies nausea, vomiting, diarrhea, abdominal pain, bloody stools. Musculoskeletal: Patient denies joint pain or edema. Denies calf pain or edema. Neurovascular: Patient denies numbness, tingling, weakness in extremities. Denies headache. Endocrine: Denies polyuria and polydipsia. Hematologic: Denies easy bruising. Skin: Denies rash or itching. PMFSH - History History Provided By: Patient - Medical History Medical History: Medical History (Last Reviewed 01/22/18 @ 04:57 by Kelsea Rodriguez DO) Diabetes Hyperlipidemia Hypertension - Family History Family History: Family History (Last Reviewed 01/22/18 @ 04:58 by Kelsea Rodriguez DO) Mother No problems noted. - Tobacco History Second Hand Smoke Exposure: No Smoking Status: Never smoker - Alcohol History How Often Do You Have a Drink Containing Alcohol: Never - Substance Use History Substance History: No History of Abuse - Travel History Recent Travel in the [place] Within the Last 8 Weeks: No Recent Travel Out of the Country Within the Last 8 Weeks: No - Immunization History Tetanus Immunization: Unsure Hx Influenza Vaccine This Season: No Medications and Allergies Active Medications: Active Medications Acetaminophen (Tylenol) 500 mg PO Q4H PRN PRN Reason: HEADACHE Aspirin (Aspirin) 325 mg PO DAILY LINDA Nitroglycerin (Nitrostat Sl) 0.4 mg SL Q5M PRN PRN Reason: CHEST PAIN Sodium Chloride (Ns Flush) 2 ml IV.FLUSH UNSCH PRN PRN Reason: FLUSH AFTER USING IV ACCESS Sodium Chloride (Ns Flush) 2 ml IV.FLUSH BID LINDA Sodium Chloride (Ns Flush) 2 ml IV.FLUSH PRN PRN PRN Reason: FLUSH AFTER USING IV ACCESS Allergies Allergy/AdvReac Type Severity Reaction Status Date / Time Penicillins Allergy Unknown Swelling Unverified 01/22/18 07:02 Home Medications Medication Instructions Recorded Confirmed Type Blood Pressure Medication 01/22/18 History Cholesterol Medication 01/22/18 History Insulin Medication 01/22/18 History Exam Vital signs: Vital Signs 01/22/18 04:35 01/22/18 05:09 01/22/18 08:37 Temperature 98.2 F Pulse Rate 76 80 68 Respiratory Rate 16 18 Blood Pressure 143/81 H 138/86 Pulse Oximetry 100 01/22/18 09:23 01/22/18 10:05 Temperature 97.9 F Pulse Rate 66 63 Respiratory Rate 16 Blood Pressure 123/81 Pulse Oximetry 99 Intake & Output 01/21/18 01/22/18 01/22/18 18:59 06:59 18:59 Weight 89 kg Narrative: GENERAL: This is a well-nourished, well-developed patient, in no apparent distress. Patient speaks in clear complete sentences. Patient is pleasant. HEENT: Head is atraumatic and normocephalic. Neck is supple without lymphadenopathy and trachea is midline. No JVD or carotid bruits. CARDIOVASCULAR: Regular rate and rhythm without murmurs, gallops, or rubs. RESPIRATORY: Clear to auscultation. Breath sounds equal bilaterally. No wheezes , rales, or rhonchi. Chest wall is tender in palpating the area seems to worsen the discomfort that he has. No use of accessory muscles. GASTROINTESTINAL: Abdomen is nontender, nondistended. Abdomen soft. No obvious pulsatile mass or bruit. No CVA tenderness. Strong femoral pulses bilaterally. Normal bowel sounds in all quadrants. MUSCULOSKELETAL: Patient is moving upper and lower extremities freely. No calf tenderness or edema, no Homans sign. Strong pulses in upper and lower extremities. NEUROLOGICAL: Patient is alert and oriented. Cranial nerves 2-12 are grossly intact. No focal deficits and speech is clear. SKIN: No rash and turgor is normal. Results 01/22/18 05:00 01/22/18 05:00 Cardiac Enzymes 01/22/18 01/22/18 Range/Units 05:00 08:00 Troponin I Less than 0.02 L Less than 0.02 L (0.02-0.05) ng/mL Coagulation 01/22/18 Range/Units 05:00 PT 9.5 L (9.8-11.6) sec CBC 01/22/18 Range/Units 05:00 WBC 7.1 (4.0-11.0) th/mm3 RBC 4.97 (4.50-5.90) mil/mm3 Hgb 14.7 (13.0-17.0) gm/dL Hct 42.9 (39.0-51.0) % Plt Count 249 (150-450) th/mm3 Neut # (Auto) 3.9 (1.8-7.7) th/mm3 Lymph # (Auto) 2.1 (1.0-4.8) th/mm3 [place]ion # (Auto) 0.6 (0.0-0.9) th/mm3 Eos # (Auto) 0.4 (0.0-0.4) th/mm3 Baso # (Auto) 0.0 (0.0-0.2) th/mm3 Comprehensive Metabolic Panel 01/22/18 Range/Units 05:00 Sodium 138 (136-145) meq/L Potassium 4.2 (3.5-5.1) meq/L Chloride 103 (98-107) meq/L Carbon Dioxide 27.7 (21.0-32.0) meq/L BUN 20 H (7-18) mg/dL Creatinine 1.05 (0.60-1.30) mg/dL Calcium 8.7 (8.5-10.1) mg/dL Intake and Output 01/21/18 01/22/18 01/22/18 22:59 06:59 14:59 Other: Weight 89 kg EKG interpretations - EKG EKG shows: sinus rhythm (EKGs are sinus rhythm without significant ST segment depressions or elevations.) Caprini VTE Risk Assessment Caprini VTE Risk Assessment: No/Low Risk (score <= 1) Caprini Risk Assessment Model: Point Value = 1 Point Value = 2 Point Value = 3 Point Value = 5 Age 41-60 Minor surgery BMI > 25 kg/m2 Swollen legs Varicose veins or History of unexplained or recurrent spontaneous Oral contraceptives or hormone replacement Sepsis (< 1 month) Serious lung disease, including pneumonia (< 1 month) Abnormal pulmonary function Acute myocardial infarction Congestive heart failure (< 1 month) History of inflammatory bowel disease Medical patient at bed rest Age 61-74 Arthroscopic surgery Major open surgery (> 45 min) Laparoscopic surgery (> 45 min) Malignancy Confined to bed (> 72 hours) Immobilizing plaster cast Central venous access Age >= 75 History of VTE Family history of VTE Factor V Leiden Prothrombin 28238H Lupus anticoagulant Anticardiolipin antibodies Elevated serum homocysteine Heparin-induced thrombocytopenia Other congenital or acquired thrombophilia Stroke (< 1 month) Elective arthroplasty Hip, pelvis, or leg fracture Acute spinal cord injury (< 1 month) Prophylaxis Regimen: Total Risk Factor Score Risk Level Prophylaxis Regimen 0-1 Low Early ambulation 2 Moderate Order ONE of the following: *Sequential Compression Device (SCD) *Heparin 5000 units SQ BID 3-4 Higher Order ONE of the following medications: *Heparin 5000 units SQ TID *Enoxaparin/Lovenox 40 mg SQ daily (WT < 150 kg, CrCl > 30 mL/min) *Enoxaparin/Lovenox 30 mg SQ daily (WT < 150 kg, CrCl > 10-29 mL/min) *Enoxaparin/Lovenox 30 mg SQ BID (WT < 150 kg, CrCl > 30 mL/min) AND/OR *Sequential Compression Device (SCD) 5 or more Highest Order ONE of the following medications: *Heparin 5000 units SQ TID (Preferred with Epidurals) *Enoxaparin/Lovenox 40 mg SQ daily (WT < 150 kg, CrCl > 30 mL/min) *Enoxaparin/Lovenox 30 mg SQ daily (WT < 150 kg, CrCl > 10-29 mL/min) *Enoxaparin/Lovenox 30 mg SQ BID (WT < 150 kg, CrCl > 30 mL/min) AND *Sequential Compression Device (SCD) Assessment and Plan - Assessment (1) Chest pain Code(s): R07.9 - Chest pain, unspecified Status: Acute (2) Diabetes Code(s): E11.9 - Type 2 diabetes mellitus without complications Status: Acute (3) Hypertension Code(s): I10 - Essential (primary) hypertension Status: Acute (4) Hyperlipidemia Code(s): E78.5 - Hyperlipidemia, unspecified Status: Acute (5) Noncompliance with medication regimen Code(s): Z91.14 - Patient's other noncompliance with medication regimen Status : Acute - Plan * Chest pain: Patient has had serial cardiac enzymes and EKGs for ruling out. He was seen by Dr. Azevedo of cardiology in the chest pain center. He will have a stress test. He would be discharged home if the stress test is nonischemic with instructions to follow-up with PCP and further discuss medical management of his illnesses. Return to ED for interval issues. * Hypertension: Have Catapres as needed. Resume medication at home. * Hyperlipidemia: Resume medication at home. * Diabetes: Patient states he has insulin at home but has not taken it. He should resume his medication as instructed by his PCP. He will have sliding scale insulin coverage while in chest pain center. * Noncompliance: I counseled the patient at length about the importance of taking the medications and consequences of not taking the medication as instructed. He now voices understanding. Patient is stable at this time. He is agreeable to this plan.
[2018-01-22 12:28] VITALS: BP 127/83; PULSE 72; TEMP 98.2; O2SAT 97
--- NOTE | 2018-01-22 12:43 | ECG ---
Date Performed: 01/22/2018 Time Performed: 08:20:25 PTAGE: 47 years EKG: Sinus rhythm NORMAL ECG No significant change from prior electrocardiogram. PREVIOUS TRACING : 01/22/2018 05.04 DOCTOR: Ernie Najera Interpretating Date/Time 01/22/2018 12:42:41
--- NOTE | 2018-01-22 16:13 | TR ---
Date Performed: 01/22/2018 Time Performed: 12:54:35 DOCTOR: Leila Azevedo DRUG LIST: CLINICAL HISTORY: CHEST PAIN REASON FOR TEST: REASON FOR ENDING: OBSERVATION: CONCLUSION: MAYA PROTOCOL. NO CP. TEST STOPPED SECONDARY TO SOB AND LEG FATIGUE.Maximum LY=664 % Max HR Achieved=94.0% Maximum ZL=638/72 Total Exercise Time=10:00 COMMENTS: NO ischemia
--- NOTE | 2018-01-22 16:17 | ECG ---
Date Performed: 01/22/2018 Time Performed: 05:04:36 PTAGE: 47 years EKG: Sinus rhythm NORMAL ECG Artifact Since PREVIOUS TRACING , no significant change noted PREVIOUS TRACIN01/25/2017 12.13 DOCTOR: Leila Azevedo Interpretating Date/Time 01/22/2018 16:15:42
== END 2018-01-22 13:47 | disposition home or self-care (01) ==
LOC: NEPC 04:34 → NEDA 04:34 → NEPHCDU 04:34
PROVIDERS: ADMIT Internal Medicine Cardiovascular Disease; ATTEND Internal Medicine Cardiovascular Disease
DX: R07.89 Other chest pain; E78.5 Hyperlipidemia, unspecified; Z79.4 Long term (current) use of insulin; Z91.14 Patient's other noncompliance with medication regimen; E11.65 Type 2 diabetes mellitus with hyperglycemia; Z82.49 Family history of ischemic heart disease and other diseases of the circulatory system; I10 Essential (primary) hypertension